=== PATIENT | female | born 1985 | race Caucasian/White ===

== ENCOUNTER → 2017-12-29 15:42 | Outpatient (CLI) | payer OTHER, SELFPAY ==
--- NOTE | 2017-12-29 15:40 | CER_PTH ---
PATIENT: JAYSHREE MORALES LOC: [facility] U#:[id number] AGE/SX: 39/F ROOM: RE12/29/[address]: Dr. Baldev Swain MD : 1985 BED: DIS: SPEC #: [id number] RECD: 12/29/17 16:30 STATUS: JOSEF GI #: [id number] JASMIN: 12/29/17 15:[address]: Baldev Swain DEPT: SURGICAL PATHOLOGY RECD BY: Evin Mckenzie Tissues: Uterine cervix, NOS Procedures: Surgery Specimen Level IV HEADER OPERATION: Excision cervical lesion PRE-OP DIAGNOSIS: Lesion on cervix (7 weeks ) TISSUE SUBMITTED: Cervical biopsy 12 o?clock MICROSCOPIC DIAGNOSIS Cervix, 12 o?clock, biopsy: Fragments of squamous mucosa with hyperkeratosis. Fragments of benign endocervical epithelium and mucous. SJ:ken 12/31/17 MICROSCOPIC DESCRIPTION Slides are reviewed. GROSS DESCRIPTION Received in fixative is one container labeled with the patient's name and designated biopsy. The specimen consists of multiple irregular fragments of kohli soft tissue mixed with mucoid tissue that in aggregate measure 1 x 1 x 0.1 cm. The specimen is totally submitted in one cassette. / SJ:ken 12/30/17 TC:5 CPT: 17984
[2017-12-29 17:02] LABS: Absolute Lymphocyte Count 1.58 X10^3/ul (0.83-4.51); Absolute Neutrophil Count 6.4 X10^3/uL (2.0-7.7); Basophil# 0.02 X10^3/uL; Basophil% 0.2 % (0-1); Eosinophil# 0.06 X10^3/uL; Eosinophils% 0.7 % (0-5); Hematocrit 35.5 % (37-47); Lymphocyte # 1.58 X10^3/ul (4.0); Lymphocyte % 18.3 % (19-41); Mean Corp Hgb Conc 33.8 g/gl (32-36); Mean Corpuscular Hgb 30.9 pg (27.0-32.0); Mean Corpuscular Volume 91.5 fL (81-99); Mean Platelet Vol. 9.1 fl (6.2-12.0); Monocyte# 0.58 X10^3/uL; Monocyte% 6.7 % (0-10); Neutrophil # 6.39 X10^3/uL (2.7-7.7); Neutrophil % 73.9 % (47-70); Platelet Count 290 K/mm3 (150-450); RBC Distribution Width CV 11.8 % (11.6-14.6); RBC Distribution Width SD 39.3 fl (35.1-43.9); Red Blood Count 3.88 M/mm3 (4.2-5.4); White Blood Count 8.7 K/mm3 (4.4-11.0)
[2017-12-29 17:18] LABS: Thyroid Stim Hormone (TSH) 0.81 uIU/mL (0.358-3.74)
[2017-12-29 17:21] LABS: Color, Urine Yellow (Yellow); Glucose, Dipstick Normal (Normal); Ketone-Dipstick Negative (Negative); Leukocyte Esterase-Dipstick 25 /ul (Negative); Nitrite-Dipstick Negative (Negative); Occult Blood-Urine Negative /ul (Negative); Protein-Dipstick Negative (Negative); Urine Bilirubin Dipstick Negative (Negative); Urine Clarity Clear (Clear); Urine Urobilinogen Normal (Normal); Urine pH 6.5 (5.0 - 8.0)
[2017-12-29 17:40] LABS: POSITIVE COUNT NO; POSITIVE DIFFERENTIAL NO; POSITIVE MORPHOLOGY NO
[2017-12-29 18:20] LABS: HIV - WCH Non-Reactive (Nonreactive); Rubella IgG 202.6 IU/mL
[2017-12-29 18:56] LABS: Chlamydia Trachomatis by PCR Negative (Negative); Neisserai gonorrhoeae by PCR Negative (Negative); Probe Check PASS; Sample Adequacy Control PASS; Specimen Processing Control PASS
[2017-12-31 01:20] LABS: Prenatal RPR NONREACTIVE (NONREACTIVE)
[2017-12-31 11:43] LABS: HEPATITIS B SURFACE AG Negative (Negative); Hep C Antibodies <0.1 s/co ratio (0.0-0.9)
[2018-01-06 10:21] LABS: HPV HC, High Risk Negative (Negative); HPV Reflexed? YES, CHARGE PATIENT
== END ==
PROVIDERS: Visit Provider Obstetrics & Gynecology
DX: O26.891 Other specified pregnancy related conditions, first trimester (principal); N88.0 Leukoplakia of cervix uteri; Z3A.01 Less than 8 weeks gestation of pregnancy; Z12.4 Encounter for screening for malignant neoplasm of cervix; Z11.3 Encounter for screening for infections with a predominantly sexual mode of transmission
CPT/HCPCS: 36415; 81002; 84443; 85025; 86703; 86762; 86803; 87340; 87491; 87591; 87624; 88175; 88305; G0145

== ENCOUNTER → 2018-06-01 11:43 | Outpatient (CLI) | payer OTHER, SELFPAY ==
[2018-06-01 13:42] LABS: Hematocrit 36.2 % (37-47); Hemoglobin 12.3 g/dl (12.0-15.0); Mean Corpuscular Hgb 32.3 pg (27.0-32.0); Mean Platelet Vol. 9.9 fl (6.2-12.0); Platelet Count 273 K/mm3 (150-450); RBC Distribution Width CV 12.4 % (11.6-14.6); RBC Distribution Width SD 41.4 fl (35.1-43.9); Red Blood Count 3.81 M/mm3 (4.2-5.4); White Blood Count 9.1 K/mm3 (4.4-11.0)
[2018-06-01 13:43] LABS: Scan Indicated on CBC? Y/N NO
[2018-06-01 13:52] LABS: Glucose Challenge Gest 1H 50g 99 mg/dL (70-140)
== END ==
PROVIDERS: Visit Provider Obstetrics & Gynecology
DX: Z34.83 Encounter for supervision of other normal pregnancy, third trimester (principal)
CPT/HCPCS: 36415; 82950; 85027

== ENCOUNTER 2018-07-10 11:48 | Emergency (ER) | payer OTHER, SELFPAY ==
[2018-07-10 11:50] VITALS: BP 137/73; PULSE 78; RESP 16; TEMP 36.7; O2SAT 98; BMI 28.0
--- NOTE | 2018-07-10 12:25 | ED.VISSUMM ---
- ER Visit Summary Date of Service: 07/10/18 Chief Complaint: Left facial droop and decreased facial sensation History of Present Illness: The patient is a 32 F no significant past medical history other than currently 35 weeks with a due date of 08/13/2018. She is AB 0. Patient states yesterday has some decreased sensation in the left side of her but did not have a droop yet. They were in the [place] area [facility] to [facility] who did a negative CT and worked her up. They discussed with her about possibly getting an MRI to rule out MS. They did not feel secondary to any type of preeclampsia. Today the patient developed a facial droop. She states it feels like when you go to the dentist and the lidocaine is wearing off. She denies any visual change. She denies any headache. She denies any head trauma. She denies any numbness, tingling, weakness or ataxia of her upper or lower extremities. No trouble walking or any visual change. Normal speech. Physical Examination: Very well-appearing 32-year-old female. Vital signs are stable afebrile. Her initial blood pressure is 137/73. She does not look septic or toxic or in any distress. HEENT exam pupils round reactive light extra motions are intact. She can open and close both eyes she has difficulty completely closing the left eye and I can open both the upper and lower lids there is weakness to closure on the left to the right is normal. She has a left facial droop. Tongue is midline. She has subjectively decreased sensation on the left compared to the right. There is forehead sparing she can wrinkle her forehead on both sides. Patient has normal speech. TMs are normal. No lesions. Neck nontender. Lungs clear to auscultation bilaterally. Heart regular rhythm no murmur. Abdomen is soft, nontender with a gravid nontender uterus. She is moving all 4 extremities. Neurovascularly intact. She has 5 out of 5 retail sales merchandiser strength bilaterally. Dorsi plantar flexion intact. She can lift either arm or leg without any drift. Fingertip to nose within normal limits as is heel to serra. Neurologic exam reveals a left facial droop with decreased sensation on the left side of the face with sparing of the forehead. Otherwise she has normal motor strength and sensation to her upper and lower extremities. 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 Test Results: None Emergency Department Course and Treatment: Patient be started on prednisone daily for 1 week. And follow-up with her GAS WELL PUMPER. Treatment Plan: Prednisone 40 m a day for 7 days. Also tape her eye closed at night. Use eyedrops. Disposition: Discharge Impression: Acute left-sided Rosenthal's palsy 35 weeks This note was generated with [email or web address] dictation software. It may contain incorrect words, spelling, and punctuation that were not noted in review of the chart prior to signing ED Disposition - Plan for ED Patient: Chief Complaint: Numb/Ting Referrals: Diego Betancourt MD [Primary Care Provider] -
--- NOTE | 2018-07-10 12:30 | ED.DCSUM_ITS ---
- ER Visit Summary Date of Service: 07/10/18 Chief Complaint: Left facial droop and decreased facial sensation History of Present Illness: The patient is a 32 F no significant past medical history other than currently 35 weeks with a due date of 08/13/2018. She is AB 0. Patient states yesterday has some decreased sensation in the left side of her but did not have a droop yet. They were in the [place] area 1 to [facility] who did a negative CT and worked her up. They discusse d with her about possibly getting an MRI to rule out MS. They did not feel secondary to any type of preeclampsia. Today the patient developed a facial droop. She states it feels like when you go to the dentist and the lidocaine is wearing off. She denies any visual change. She denies any headache. She denies any head trauma. She denies any numbness, tingling, weakness or ataxia of her upper or lower extremities. No trouble walking or any visual change. Normal speech. Physical Examination: Very well-appearing 32-year-old female. Vital signs are stable afebrile. Her initial blood pressure is 137/73. She does not look septic or toxic or in any distress. HEENT exam pupils round reactive light extra motions are intact. She can open and close both eyes she has difficulty completely closing the left eye and I can open both the upper and lower lids there is weakness to closure on the left to the right is normal. She has a left facial droop. Tongue is midline. She has subjectively decreased sensation on the left compared to the right. There is forehead sparing she can wrinkle her forehead on both sides. Patient has normal speech. TMs are normal. No lesions. Neck nontender. Lungs clear to auscultation bilaterally. Heart regular rhythm no murmur. Abdomen is soft, nontender with a gravid nontender uterus. She is moving all 4 extremities. Neurovascularly intact. She has 5 out of 5 band sawyer strength bilaterally. Dorsi plantar flexion intact. She can lift either arm or leg without any drift. Fingertip to nose within normal limits as is heel to serra. Neurologic exam reveals a left facial droop with decreased sensation on the left side of the face with sparing of the forehead. Otherwise she has normal motor strength and sensation to her upper and lower extremities. 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 Test Results: None Emergency Department Course and Treatment: Patient be started on prednisone daily for 1 week. And follow-up with her GROUP LEADER. Treatment Plan: Prednisone 40 m a day for 7 days. Also tape her eye closed at night. Use eyedrops. Disposition: Discharge Impression: Acute left-sided Rosenthal's palsy 35 weeks This note was generated with [employer] dictation software. It may contain incorrect words, spelling, and punctuation that were not noted in review of the chart prior to signing ED Disposition - Plan for ED Patient: Chief Complaint: Numb/Ting Referrals: Diego Betancourt MD [Primary Care Provider] -
--- NOTE | 2018-07-10 12:32 | DCINST.ED_ITS ---
ED Disposition - Plan for ED Patient: Disposition: Home or Assisted Living Chief Complaint: Numb/Ting Instructions: ED [facility] Prescriptions: Prednisone [Deltasone] 40 mg PO DAILY 7 Days #7 tab Referrals: Baldev Swain MD [STAFF PHYSICIAN] - As soon as possible Additional Instructions: Prednisone daily. Follow-up with your MANAGER MECHANICAL.
[2018-07-10] MEDS: predniSONE 20 MG Tablet 40 MG PO (13:00)
--- OUTSIDE RECORDS SUMMARY | 2018-09-02 23:25 | XMS RPT_ITS | Summary of Care ---
:1985 Author Organization [facility] Address [address] [place] [address] Phone Care Team Providers Name Role Phone Unavailable Primary Care Provider Unavailable Reason for Referral Consultation (Routine) Status Reason Specialty Diagnoses / Referred By Referred To Procedures Contact Contact New Request Neurology Diagnoses Right facial numbness Devin Ceballos MD [address] [place] [address] Reason for Visit Reason Comments Numbness Right Face Encounter Details Date Type Department Care Team Description 07/09/2018 Emergency [facility] Hu Padilla MD [address] [place] [phone] Ally Bates MD [address] [place] [phone] [place] [phone] Allergies No Known Allergiesas of this encounter Medications Prescription Sig. Disp. Refills Start Date End Date Status Vit-Fe Fumarate-FA Take by mouth. Active ( 1+1 PO) as of this encounter Social History Tobacco Use Types Packs/Day Years Used Date Never Assessed Currently Estimated Date of Delivery Comments Yes 08/13/2018 Sex Assigned at Date Recorded Not on file as of this encounter Last Filed Vital Signs Vital Sign Reading Time Taken Blood Pressure 135/76 07/09/2018 6:52 PM EST Pulse 80 07/09/2018 6:52 PM EST Temperature 37.2 ??C (99 ??F) 07/09/2018 3:04 PM EST Respiratory Rate 20 07/09/2018 6:52 PM EST Oxygen Saturation 98% 07/09/2018 6:52 PM EST Inhaled Oxygen Concentration - - Weight - - Height 170.2 cm (5' 7) 07/09/2018 3:05 PM EST Body Mass Index - - in this encounter Discharge Instructions Anabelle Anand MD - 07/09/2018The CT of your head was normal. The labs were normal. Neurology evaluated you and would like you to follow up with them 1 month after . Please return for worsening or changing numbness, weakness, v ision change, or slurred speech.in this encounter Plan of Treatment Scheduled Tests Name Priority Associated Diagnoses Order Schedule URINE PROTEIN/CREA RATIO, STAT One Time for 1 Occurrences RANDOM starting 07/09/2018 until 07/09/2018 Scheduled Referrals Name Priority Associated Diagnoses Order Schedule AMB REFERRAL TO NEUROLOGY Routine Right facial numbness Ordered: 07/09/2018 Health Maintenance Due Date Last Done Comments HIV SCREENING DISCUSSION 1997 TETANUS 2002 TDAP (ADULT) 2003 PAP SMEAR DISCUSSION 2005 INFLUENZA VACCINE (#1) 2018 as of this encounter Procedures Procedure Name Priority Date/Time Associated Comments Diagnosis CT HEAD WITHOUT STAT 07/09/2018 4:48 Results for this CONTRAST PM EST procedure are in the results section. CBC, EDIF, PLATELET STAT 07/09/2018 3:33 Results for this PM EST procedure are in the results section. PHOSPHATE, INORGANIC STAT 07/09/2018 3:33 Results for this PM EST procedure are in the results section. MAGNESIUM STAT 07/09/2018 3:33 Results for this PM EST procedure are in the results section. HEPATIC FUNCTION STAT 07/09/2018 3:33 Results for this PANEL PM EST procedure are in the results section. BASIC METABOLIC PANEL STAT 07/09/2018 3:33 Results for this PM EST procedure are in the results section. URINE MICROSCOPIC Routine 07/09/2018 3:18 Results for this WITH CULTURE HOLD PM EST procedure are in the results section. in this encounter Results CT HEAD WITHOUT CONTRAST (07/09/2018 4:48 PM) Impressions Performed At IMPRESSION: RADIOLOGY No acute intracranial findings. Narrative Performed At EXAM:?CT HEAD WITHOUT CONTRAST, 07/09/2018 4:48 PM RADIOLOGY COMPARISON: None available. CLINICAL INDICATIONS: 32 years Female R facial dysesthesia; TECHNIQUE: A series of transaxial computerized tomographic images are obtained from base of skull to vertex without intravenous contrast. Axial whole-head and thin section posterior fossa slices are provided. Reformats: Sagittal and coronal. FINDINGS: No evidence of acute intracranial hemorrhage, significant mass effect or territory infarct. No hyperdense extra-axial collection is identified. Ventricles are normal in size and configuration for patient's stated age. No obvious CT abnormality involving the posterior fossa structures. Calvarium and skull base appear intact.?Visualized sinuses show no air fluid levels. Visualized orbits are unremarkable. Procedure Note User, Interfaces - 07/09/2018 5:16 PM EST EXAM: CT HEAD WITHOUT CONTRAST, 07/09/2018 4:48 PM COMPARISON: None available. CLINICAL INDICATIONS: 32 years Female R facial dysesthesia; TECHNIQUE: A series of transaxial computerized tomographic images are obtained from base of skull to vertex without intravenous contrast. Axial whole-head and thin section posterior fossa slices are provided. Reformats: Sagittal and coronal. FINDINGS: No evidence of acute intracranial hemorrhage, significant mass effect or territory infarct. No hyperdense extra-axial collection is identified. Ventricles are normal in size and configuration for patient's stated age. No obvious CT abnormality involving the posterior fossa structures. Calvarium and skull base appear intact. Visualized sinuses show no air fluid levels. Visualized orbits are unremarkable. IMPRESSION IMPRESSION: No acute intracranial findings. Performing Organization Address [facility] [place] Phone Number RADIOLOGY HEPATIC FUNCTION PANEL (07/09/2018 3:33 PM) AST 17 14 - 40 U/L LAB, [facility] ALT 11 9 - 48 U/L LAB, [facility] ALKALINE PHOSPHATASE 92 32 - 126 U/L LAB, [facility] ALBUMIN 3.5 3.5 - 5.0 g/dL LAB, [facility] BILIRUBIN, DIRECT 0.1 <0.3 mg/dL LAB, [facility] BILIRUBIN, TOTAL 0.3 <1.5 mg/dL LAB, [facility] PROTEIN, TOTAL 6.2 (L) 6.4 - 8.3 g/dL LAB, [facility] Performing Organization Address [facility] [place] Phone Number LAB, [facility] [place] [facility], [address], [address] PHOSPHATE, INORGANIC (07/09/2018 3:33 PM) PHOSPHATE, INORGANIC 4.6 2.2 - 4.6 mg/dL LAB, [facility] Performing Organization Address [facility] [place] Phone Number LAB, [facility] [place] [facility], [address], [address] MAGNESIUM (07/09/2018 3:33 PM) MAGNESIUM 2.0 1.6 - 2.6 mg/dL LAB, [facility] Performing Organization Address [facility] [place] Phone Number LAB, [facility] [place] [facility], [address], [address] BASIC METABOLIC PANEL (07/09/2018 3:33 PM) BUN 9 7 - 22 mg/dL LAB, [facility] CREATININE SERUM 0.67 0.50 - 1.20 mg/dL LAB, [facility] SODIUM 136 133 - 143 mmol/L LAB, [facility] POTASSIUM 3.8 3.5 - 5.0 mmol/L LAB, [facility] CHLORIDE 106 98 - 108 mmol/L LAB, [facility] CARBON DIOXIDE (CO2) 19 (L) 22 - 30 mmol/L LAB, [facility] GLUCOSE 85 70 - 99 mg/dL LAB, [facility] CALCIUM 9.2 8.6 - 10.5 mg/dL LAB, [facility] ANION GAP 15 7 - 17 mmol/L LAB, [facility] ESTIMATED GFR, NON AMER >60 >60 mL/min/1.73sqM LAB, [facility] ESTIMATED GFR, >60 >60 mL/min/1.73sqM LAB, [facility] Performing Organization Address [facility] Number LAB, [facility] [place] [facility], [address], [address] CBC, EDIF, PLATELET (07/09/2018 3:33 PM) WBC (WHITE BLOOD COUNT) 8.60 3.99 - 11.19 K/uL LAB, [facility] RBC 3.94 3.91 - 5.04 M/uL LAB, [facility] HEMOGLOBIN (HGB) 12.6 11.4 - 15.2 g/dL LAB, [facility] HEMATOCRIT (HCT) 37.1 34.9 - 44.3 % LAB, [facility] MEAN CELL VOLUME 94.2 79.6 - 97.7 fL LAB, [facility] Mean Cell HGB 32.0 25.9 - 33.9 pg LAB, [facility] MEAN CELL HGB CONCENTRATION 34.0 31.4 - 35.9 g/dL LAB, [facility] RBC DISTRIBUTION 12.1 10.8 - 14.9 % LAB, [facility] PLATELET COUNT 252 150 - 393 K/uL LAB, [facility] MEAN PLATELET VOLUME 10.4 8.5 - 12.2 fL LAB, [facility] RBC, NUCLEATED 0.0 0.0 - 0.2 /100 WBC LAB, [facility] DIFFERENTIAL TYPE Electronic Differential LAB, [facility] IMMATURE GRANS% 0.5 % LAB, [facility] NEUTROPHIL SEGMENTED 71.2 % LAB, [facility] LYMPHOCYTES 19.8 % LAB, [facility] MONOCYTE 7.3 % LAB, [facility] EOSINOPHIL 0.7 % LAB, [facility] BASOPHIL 0.5 % LAB, [facility] IMMATURE GRANS ABSOLUTE 0.04 0.00 - 0.08 K/uL LAB, [facility] SEGS + Bands, Absolute 6.13 1.64 - 7.28 K/uL LAB, [facility] LYMPHOCYTES, ABSOLUTE 1.70 1.16 - 3.51 K/uL LAB, [facility] MONOCYTES, ABSOLUTE 0.63 0.22 - 0.87 K/uL LAB, [facility] EOSINOPHILS, ABSOLUTE 0.06 0.00 - 0.42 K/uL LAB, [facility] BASOPHILS, ABSOLUTE 0.04 0.00 - 0.15 K/uL LAB, [facility] Performing Organization Address City/State/Zipcode Phone Number LAB, [facility] [place] [facility], [place] [address] Center, [address] URINE MICROSCOPIC WITH CULTURE HOLD (07/09/2018 3:18 PM) APPEARANCE, URINE Clear Clear LAB, [facility] SPECIFIC GRAVITY, URINE 1.010 1.001 - 1.035 LAB, [facility] PH URINE 7.0 5.0 - 7.0 LAB, [facility] GLUCOSE, URINE Negative Negative mg/dL LAB, [facility] KETONES, URINE Negative Negative LAB, [facility] PROTEIN, URINE Negative Negative mg/dL LAB, [facility] UROBILINOGEN, URINE 0.2 <2.0 EU/dL LAB, [facility] NITRITES, URINE Negative Negative LAB, [facility] LEUKOCYTE ESTERASE, URINE Small (A) Negative LAB, [facility] BLOOD, URINE Negative Negative LAB, [facility] COLOR, URINE Yellow Yellow LAB, [facility] WBC, URINE 0-5 0 - 5 /HPF LAB, [facility] RBC, URINE 0-2 0 - 2 /HPF LAB, [facility] BACTERIA, URINE Trace (A) Absent LAB, [facility] COMMENT, URINE None LAB, [facility] SQUAMOUS EPITHELIAL CELLS, URINE 1+ /HPF LAB, [facility] Performing Organization Address City/State/Zipcode Phone Number LAB, [facility], [address] [place] [address] in this encounter Visit Diagnoses Diagnosis Right facial numbness - Primary Disturbance of skin sensation
--- OUTSIDE RECORDS SUMMARY | 2018-09-02 23:26 | XMS RPT_ITS ---
:1985 Author Organization [facility] Care Team Providers Name Role Phone CONSULT, NEUROLOGY Consulting Unavailable ALEX BONDS Attending Unavailable Baldev Swain Attending Unavailable Baldev Swain Attending Unavailable Baldev Swain Attending Unavailable Khalif Pinon Attending Unavailable Baldev Swain Referring Unavailable Diego Betancourt Primary Care Unavailable PROBLEMS PROBLEMS DATE TYPE CONDITION / CODE ATTENDING STATUS SOURCE 07/20/2018 Unknown Z36.85 - Encounter Baldev Swain for Community screening for Hospital Streptococcus B / Repository Z36.85(ICD-10) 07/20/2018 Unknown O13.9 - Gestational Baldev Swain Active [facility] [-induced] Community hypertension Hospital without significant Repository proteinuria, unspecified trimester / O13.9(ICD-10) 07/20/2018 Unknown Z34.83 - Encounter Baldev Swain Active [facility] for supervision of Community other normal Hospital , third Repository trimester / Z34.83(ICD-10) 07/20/2018 Unknown R03.0 - Elevated Baldev Swain Active [facility] blood-pressure Community reading, without Hospital diagnosis of Repository hypertension / R03.0(ICD-10) 07/09/2018 Admitting Anesthesia of skin CAMMIE, Active [facility] diagnosis / R20.0(ICD-10) [facility] Repository 12/29/2017 Unknown Z34.81 - Encounter Baldev Swain Active [facility] for supervision of [facility] other normal Hospital , first Repository trimester / Z34.81(ICD-10) PROCEDURES PROCEDURES No Procedure Records FoundRESULTS RESULTS CBC-COMPLETE BLOOD CNT Collected: 07/20/2018 Status: F Source: [place] NO DIFF 10:44 AM [facility] REPOSITORY TYPE CODE TESTS RESULT OUT OF RANGE REFERENCE UNITS LAB L100.1000 4.4-11.0 K/mm3 Normal WBC 6.7 LAB L100.1200 4.2-5.4 M/mm3 Low RBC 3.91 LAB L100.1300 12.0-15.0 g/dl Normal HGB 12.1 LAB L100.1400 37-47 % Low HCT 36.9 LAB L100.1500 81-99 fL Normal MCV 94.4 LAB L100.1600 27.0-32.0 pg Normal MCH 30.9 LAB L100.1700 32-36 g/gl Normal MCHC 32.8 LAB L100.1810 11.6-14.6 % Normal RDW CV 12.5 LAB L100.1820 35.1-43.9 fl Normal RDW SD 42.5 LAB L100.1900 150-450 K/mm3 Normal PLT 277 LAB L100.2000 6.2-12.0 fl Normal MPV 10.4 Performed By: #### L100.0500 #### [facility] [address] [place], [address] URIC ACID Collected: 07/20/2018 Status: F Source: [place] 10:44 AM [facility] REPOSITORY TYPE CODE TESTS RESULT OUT OF RANGE REFERENCE UNITS LAB L501.1400 2.6-6.0 mg/dL High URIC 6.9 Result Comment: The drugs N-Acetylcysteine and Metamizole may falsely depress this assay. Performed By: #### L501.1400, L501.4100, L501.4405 #### [facility] [address] [place], [address] AST(SGOT) Collected: 07/20/2018 Status: F Source: [place] 10:44 AM [facility] REPOSITORY TYPE CODE TESTS RESULT OUT OF RANGE REFERENCE UNITS LAB L501.4100 15-37 U/L Normal AST 15 Performed By: #### L501.1400, L501.4100, L501.4405 #### [facility] [address] [place], [place], [id number] ALANINE AMINOTRANSFERAS Collected: 07/20/2018 Status: F Source: [place] (SGPT) 10:44 AM [facility] REPOSITORY TYPE CODE TESTS RESULT OUT OF RANGE REFERENCE UNITS LAB L501.4405 13-56 U/L Normal ALT 15 Performed By: #### L501.1400, L501.4100, L501.4405 #### [facility] [address] [place], [place], [address] Observed: 07/20/2018 Status: F Source: [place] CULTURE, GROUP B 9:45 AM [facility] STREPTOCOCCUS REPOSITORY Comments: VAGINAL/RECTAL STEPHANY Culture ORGANISM 1: Streptococcus agalactiae (B) Amount Growth Growth Streptococcus agalactiae (B): REACTION Ampicillin $ <=0.25 S Clindamycin $$ <=0.25 R Inducable Clindamycin Resistan + Linezolid $$$$ <=2 S Vancomycin $ 0.5 S (NF) indicates non-formulary drug at [facility]. Approval by Infectious Disease Specialist required before non-formulary drugs may be ordered and/or dispensed. * CLSI guidelines does not recommend testing of cephalosporins. This interpretation is deduced from Beta-lactam/penicillin results. Performed By: #### M100.1800 #### [facility] [address] [place], [address] EMERGENCY DEPARTMENT Observed: 07/10/2018 Status: F Source: [place] SUMMARY 4:37 PM [facility] REPOSITORY [facility] Medical Records Department [address] [place] [address] Emergency Department Summary 07/10/18 1225 MR#: [id number] Acct: [id number] Name: JAYSHREE MORALES Rep #: [id number] : 1985 32 From: Khalif Pinon MD PCP: Diego Betancourt MD Status: DEP ER - ER Visit Summary Date of Service: 07/10/18 Chief Complaint: Left facial droop and decreased facial sensation History of Present Illness: The patient is a 32 F no significant past medical history other than currently 35 weeks with a due date of 08/13/2018. She is AB 0. Patient states yesterday has some decreased sensation in the left side of her but did not have a droop yet. They were in the [place] area 1 to [facility] who did a negative CT and worked her up. They discussed with her about possibly getting an MRI to rule out MS. They did not feel secondary to any type of preeclampsia. Today the patient developed a facial droop. She states it feels like when you go to the dentist and the lidocaine is wearing off. She denies any visual change. She denies any headache. She denies any head trauma. She denies any numbness, tingling, weakness or ataxia of her upper or lower extremities. No trouble walking or any visual change. Normal speech. Physical Examination: Very well-appearing 32-year-old female. Vital signs are stable afebrile. Her initial blood pressure is 137/73. She does not look septic or toxic or in any distress. HEENT exam pupils round reactive light extra motions are intact. She can open and close both eyes she has difficulty completely closing the left eye and I can open both the upper and lower lids there is weakness to closure on the left to the right is normal. She has a left facial droop. Tongue is midline. She has subjectively decreased sensation on the left compared to the right. There is forehead sparing she can wrinkle her forehead on both sides. Patient has normal speech. TMs are normal. No lesions. Neck nontender. Lungs clear to auscultation bilaterally. Heart regular rhythm no murmur. Abdomen is soft, nontender with a gravid nontender uterus. She is moving all 4 extremities. Neurovascularly intact. She has 5 out of 5 temporary receptionist strength bilaterally. Dorsi plantar flexion intact. She can lift either arm or leg without any drift. Fingertip to nose within normal limits as is heel to serra. Neurologic exam reveals a left facial droop with decreased sensation on the left side of the face with sparing of the forehead. Otherwise she has normal motor strength and sensation to her upper and lower extremities. 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 Test Results: None Emergency Department Course and Treatment: Patient be started on prednisone daily for 1 week. And follow-up with her NURSE INFECTION CONTROL. Treatment Plan: Prednisone 40 m a day for 7 days. Also tape her eye closed at night. Use eyedrops. 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 It may contain incorrect words, spelling, and punctuation that were not noted in review of the chart prior to signing ED Disposition - Plan for ED Patient: Chief Complaint: Numb/Ting Referrals: Diego Betancourt MD [Primary Care Provider] - What to do if you have Problems For any increased pain, shortness of breath, bleeding, nausea or vomiting, chest pain, or any unexpected problems, contact your Primary Care Provider. Call [facility] ([phone]) or report to the closest Emergency Room. Call 911 if necessary. 07/10/18 7995 <Electronically signed by Khalif Pinon MD> Date Khalif Pinon MD Cosigner Signature (If Indicated): Date CC: Diego Betancourt MD DISCHARGE INSTRUCTION Observed: 07/10/2018 Status: F Source: [place] 4:37 PM [facility] REPOSITORY [facility] Medical Records Department [address] [place] [address] Discharge Instruction 07/10/18 1230 MR#: [id number] Acct: [id number] Name: JAYSHREE MORALES Rep #: [id number] : 1985 32 From: Khalif Pinon MD PCP: Diego Betancourt MD Status: DEP ER ED Disposition - Plan for ED Patient: Disposition: Home or Assisted Living Chief Complaint: Numb/Ting Instructions: ED [place] Palsy Prescriptions: Prednisone [Deltasone] 40 mg PO DAILY 7 Days #7 tab Referrals: Baldev Swain MD [STAFF PHYSICIAN] - As soon as possible Additional Instructions: Prednisone daily. Follow-up with your NURSE INFECTION CONTROL. What to do if you have Problems For any increased pain, shortness of breath, bleeding, nausea or vomiting, chest pain, or any unexpected problems, contact your Primary Care Provider. Call [facility] ([phone]) or report to the closest Emergency Room. Call 911 if necessary. 07/10/18 1487 <Electronically signed by Khalif Pinon MD> Date Khalif Pinon MD Cosigner Signature (If Indicated): Date CC: Diego Betancourt MD CT HEAD WITHOUT Observed: 07/09/2018 Status: F Source: [place] CONTRAST 5:16 PM [facility] REPOSITORY EXAM: CT HEAD WITHOUT CONTRAST, 07/09/2018 4:48 [...] air fluid levels. Visualized orbits are unremarkable. IMPRESSION: No acute intracranial findings. WITH DIFF HENRIQUE Collected: 07/09/2018 Status: F Source: [facility] 3:33 PM [facility] REPOSITORY TYPE CODE TESTS RESULT OUT OF REFERENCE UNITS RANGE LAB WBC 3.99-11.19 K/uL WBC Count 8.60 LAB RBC 3.91-5.04 M/uL RBC Count 3.94 LAB HGB 11.4-15.2 g/dL Hemoglobin 12.6 LAB HCT 34.9-44.3 % Hematocrit 37.1 LAB MCV 79.6-97.7 fL Mean Cell 94.2 Volume LAB MCH 25.9-33.9 pg Mean Cell 32.0 Hgb LAB MCHC 31.4-35.9 g/dL Mean Cell 34.0 Hgb Conc LAB RDW 10.8-14.9 % RBC 12.1 Distribution LAB PLT 150-393 K/uL Platelet 252 Count LAB MPV 8.5-12.2 fL Mean 10.4 Platelet Volume LAB NRBC 0.0-0.2 /100 WBC NUCLEATED 0.0 RBC LAB DTYPE Electronic DIFFERENTIAL TYPE Differential LAB IGRE % IMMATURE 0.5 GRANS % LAB SEGS % NEUTROPHIL 71.2 SEGMENTED LAB LYM % LYMPHOCYTE 19.8 % LAB MON % MONOCYTE % 7.3 LAB EOS % *EOSINOPHIL 0.7 % LAB BASO % BASOPHIL % 0.5 LAB IGABS 0.00-0.08 K/uL IMMATURE 0.04 GRANS ABSOLUTE LAB SBANS 1.64-7.28 K/uL SEGS + 6.13 Bands,Absolute LAB ALYM 1.16-3.51 K/uL Abs Lymph 1.70 LAB AMONO 0.22-0.87 K/uL Abs [facility] 0.63 LAB AEOS 0.00-0.42 K/uL Abs Eos 0.06 LAB ABASO 0.00-0.15 K/uL Abs Baso 0.04 Performed By: #### CBCDFJ #### [facility], [facility] [address] [place], [place] [address] BASIC METABOLIC Collected: 07/09/2018 Status: F Source: [facility] PANEL-CHRI 3:33 PM [facility] REPOSITORY TYPE CODE TESTS RESULT OUT OF REFERENCE UNITS RANGE LAB BUN 7-22 mg/dL BUN 9 LAB CREA 0.50-1.20 mg/dL Creatinine 0.67 LAB NA 133-143 mmol/L Sodium 136 LAB K 3.5-5.0 mmol/L Potassium 3.8 LAB CL 98-108 mmol/L Chloride 106 LAB CO2 22-30 mmol/L Low Carbon Dioxide 19 LAB GLUC 70-99 mg/dL Glucose 85 LAB CA 8.6-10.5 mg/dL Calcium 9.2 LAB GAP 7-17 mmol/L Anion Gap 15 LAB GFR >60 mL/min/1.73 sqM Est GFR,non >60 Japanese LAB GFRA >60 mL/min/1.73 sqM Est GFR, >60 Performed By: ###Juan Pablo SEAMAN #### [facility] NULL, [facility] [address] [place] [address] HEPATIC FUNCTIONS - Collected: 07/09/2018 Status: F Source: [facility] CHRI 3:33 PM [facility] REPOSITORY TYPE CODE TESTS RESULT OUT OF REFERENCE UNITS RANGE LAB AST 14-40 U/L AST 17 LAB ALT 9-48 U/L ALT 11 LAB ALP 32-126 U/L Alkaline Phosphatase 92 LAB ALB 3.5-5.0 g/dL Albumin 3.5 LAB BILD <0.3 mg/dL Bilirubin Direct 0.1 LAB BILT <1.5 mg/dL Bilirubin Total 0.3 LAB TP 6.4-8.3 g/dL Low Total Protein 6.2 Performed By: #### JURGEN #### [facility] CCCT, [facility] [address] [place] [address] INORG PHOSPHATE - CHRI Collected: 07/09/2018 Status: F Source: [facility] 3:33 PM [facility] REPOSITORY TYPE CODE TESTS RESULT OUT OF REFERENCE UNITS RANGE LAB IP 2.2-4.6 mg/dL Inorg Phosphate 4.6 Performed By: #### JURGEN #### [place] CCCT, [facility] [address] [place] [address] MAGNESIUM - CHRI Collected: 07/09/2018 Status: F Source: [facility] 3:33 PM [facility] REPOSITORY TYPE CODE TESTS RESULT OUT OF REFERENCE UNITS RANGE LAB MG 1.6-2.6 mg/dL Magnesium 2.0 Performed By: #### CBCDFJ #### [place] CCCT, [facility] [address] [place], [place] [address] *URINALYSIS (WITH MICRO Collected: 07/09/2018 Status: F Source: [facility]) - ED 3:18 PM [facility] REPOSITORY TYPE CODE TESTS RESULT OUT OF RANGE REFERENCE UNITS LAB JUNIOR ARCHITECT Clear Appearance Urine Clear LAB SPGR 1.001-1.035 Specific [place] urine 1.010 LAB UPH 5.0-7.0 pH Urine 7.0 LAB UGL Negative mg/dL Glucose Urine Negative LAB UKET Negative Ketones Urine Negative LAB UPR Negative mg/dL Protein Urine Negative LAB UURO <2.0 EU/dL Urobilinogen 0.2 urine LAB UNTR Negative Nitrites Urine Negative LAB ULEU Negative Leukocyte Abnormal Esterase Small LAB UBLD Negative Blood Urine Negative LAB COLR Yellow Color Yellow LAB UWBC 0-5 /HPF WBC Urine 0-5 LAB URBC 0-2 /HPF RBC Urine 0-2 LAB BACT Absent Bacteria Abnormal Trace LAB UCOM COMMENT URINE None LAB EPIS /HPF Squamous Epithelial 1+ Performed By: #### URINCC #### [place]O [facility] [address] [place] [address] [place] [address] CBC-COMPLETE BLOOD CNT Collected: 06/01/2018 Status: F Source: [place] NO DIFF 11:38 AM [facility] REPOSITORY TYPE CODE TESTS RESULT OUT OF RANGE REFERENCE UNITS LAB L100.1000 4.4-11.0 K/mm3 Normal WBC 9.1 LAB L100.1200 4.2-5.4 M/mm3 Low RBC 3.81 LAB L100.1300 12.0-15.0 g/dl Normal HGB 12.3 LAB L100.1400 37-47 % Low HCT 36.2 LAB L100.1500 81-99 fL Normal MCV 95.0 LAB L100.1600 27.0-32.0 pg High MCH 32.3 LAB L100.1700 32-36 g/gl Normal MCHC 34.0 LAB L100.1810 11.6-14.6 % Normal RDW CV 12.4 LAB L100.1820 35.1-43.9 fl Normal RDW SD 41.4 LAB L100.1900 150-450 K/mm3 Normal PLT 273 LAB L100.2000 6.2-12.0 fl Normal MPV 9.9 Performed By: #### L100.0500 #### [facility] [address] [place], [address] GLUCOSE CHALLENGE GEST Collected: 06/01/2018 Status: F Source: [place] 1H 50G 11:38 AM [facility] REPOSITORY TYPE CODE TESTS RESULT OUT OF RANGE REFERENCE UNITS LAB L501.0250 70-140 mg/dL Normal GLU GEST 99 50g 1H Performed By: #### L501.0250 #### [facility] [address] [facility] [place], [address] THYROID STIM HORMONE Collected: 12/29/2017 Status: F Source: [place] (TSH) 3:48 PM [facility] REPOSITORY TYPE CODE TESTS RESULT OUT OF RANGE REFERENCE UNITS LAB L501.9520 0.358-3.74 uIU/mL Normal TSH 0.81 Performed By: #### L501.9520 #### [facility] [address] [place], [address] URINALYSIS, ROUTINE Collected: 12/29/2017 Status: F Source: [place] (DIPSTICK) 3:48 PM [facility] REPOSITORY Order Comment: How was Urine Obtained? CLEAN CATCH TYPE CODE TESTS RESULT OUT OF RANGE REFERENCE UNITS LAB L400.3000 Yellow COLOR Normal Yellow LAB L400.3050 Clear Normal CLARITY Clear LAB L400.3200 Normal mg/dl Normal GLUCOSE, UR Normal LAB L400.3300 Negative mg/dL Normal BILIRUBIN URINE Negative LAB L400.3400 Negative mg/dl Normal KETONE UR Negative LAB L400.3465 1.002-1.030 Normal SP.GR. DIPSTX 1.010 LAB L400.3550 5.0 - 8.0 pH UR Normal 6.5 LAB L400.3600 Negative mg/dl PROT Normal DIPSTX Negative LAB L400.3700 Normal mg/dl Normal UROBILI Normal LAB L400.3750 Negative Normal NITRITE UR Negative LAB L400.3780 Negative /ul Normal OCCULT BLOOD-UR Negative LAB L400.3800 Negative /ul High LEUK 25 ESTERASE Performed By: #### L400.2010 #### [facility] [address] [facility] [place], [place], [address] CBC W/DIFF, AUTOMATED Collected: 12/29/2017 Status: F Source: [place] 3:48 PM [facility] REPOSITORY TYPE CODE TESTS RESULT OUT OF RANGE REFERENCE UNITS LAB L100.1000 4.4-11.0 K/mm3 Normal WBC 8.7 LAB L100.1200 4.2-5.4 M/mm3 Low RBC 3.88 LAB L100.1300 12.0-15.0 g/dl Normal HGB 12.0 LAB L100.1400 37-47 % Low HCT 35.5 LAB L100.1500 81-99 fL Normal MCV 91.5 LAB L100.1600 27.0-32.0 pg Normal MCH 30.9 LAB L100.1700 32-36 g/gl Normal MCHC 33.8 LAB L100.1810 11.6-14.6 % Normal RDW CV 11.8 LAB L100.1820 35.1-43.9 fl Normal RDW SD 39.3 LAB L100.1900 150-450 K/mm3 Normal PLT 290 LAB L100.2000 6.2-12.0 fl Normal MPV 9.1 LAB L100.2100 47-70 % High NEUT% 73.9 LAB L100.2200 19-41 % Low LY% 18.3 LAB L100.2300 0-10 % Normal MONO% 6.7 LAB L100.2400 0-5 % Normal EO% 0.7 LAB L100.2500 0-1 % Normal BASO% 0.2 LAB L100.2550 0.0-0.9 % Normal IM GRAN % 0.200 Result Comment: IG% - Immature Granulocytes (promyelocytes, myelocytes and metamyelocytes) > 1% indicates that a LEFT SHIFT is Present. LAB L100.2620 2.0-7.7 X10 3/uL Normal Absolute Neut 6.4 LAB L100.2720 0.83-4.51 X10 3/ul Normal Absolute Lymph 1.58 Performed By: #### L100.0100 #### [facility] [address] [place], [place], [address] T AND S-NO Collected: 12/29/2017 Status: F Source: [place] CHARGE W/PNP 3:48 PM [facility] REPOSITORY Order Comment: Reason for Type AND Screen/Red Cells: Surgery? N TYPE CODE TESTS RESULT OUT OF RANGE REFERENCE UNITS LAB B10.0800 A Normal BLOOD POSITIVE TYPE GEL LAB B100.4050 Normal Ab SCREEN NEGATIVE GEL Performed By: #### B100.7550 #### [facility] [place], [address] RUBELLA IGG Collected: 12/29/2017 Status: F Source: [place] 3:48 PM [facility] REPOSITORY TYPE CODE TESTS RESULT OUT OF RANGE REFERENCE UNITS LAB L509.4000 IU/mL Normal [place]ella IgG 202.6 Result Comment: Antibody results Interpretation of Immune Status < 5 IU/ml Presumed Non-immune 5 - < 10 IU/ml Equivocal > or = 10 IU/ml Presumed Immune Performed By: #### L509.4000, L3890.6005 #### [facility] [address] [place], [place] [address]e. [facility] [address] HIV - [facility] Collected: 12/29/2017 Status: F Source: [place] 3:48 PM [facility] REPOSITORY TYPE CODE TESTS RESULT OUT OF RANGE REFERENCE UNITS LAB L3890.6005 Nonreactive Normal HIV - [facility] Non-Reactive Performed By: #### L509.4000, L3890.6005 #### [facility] [place], [address] RPR Collected: 12/29/2017 Status: F Source: [place] 3:48 PM [facility] REPOSITORY TYPE CODE TESTS RESULT OUT OF REFERENCE UNITS RANGE LAB L700.5100 NONREACTIVE Normal RPR NONREACTIVE Performed By: #### L700.5100 #### [facility] [address] [place], [address] HEPATITIS B SURFACE Collected: 12/29/2017 Status: F Source: [place] AG 3:48 PM [facility] REPOSITORY TYPE CODE TESTS RESULT OUT OF RANGE REFERENCE UNITS LAB L3100.0400 Negative Normal HB Negative SURF AG Result Comment: Performed at: - [facility] [id number] Sales And Training Specialist: Anup Blunt PhD, Phone: [phone] Performed By: #### L3100.0390, L3100.0625 #### [facility] (refer to report for specific site) refer to report for address and phone number HEPATITIS C ANTIBODIES Collected: 12/29/2017 Status: F Source: [place] 3:48 PM [facility] REPOSITORY TYPE CODE TESTS RESULT OUT OF RANGE REFERENCE UNITS LAB L3100.0650 0.0-0.9 s/co ratio Normal HEP C AB <0.1 Result Comment: Negative: < 0.8 Indeterminate: 0.8 - 0.9 Positive: > 0.9 The CDC recommends that a positive HCV antibody result be followed up with a HCV Nucleic Acid Amplification test (003428). Performed By: #### L3100.0390, L3100.0625 #### [facility] (refer to report for specific site) refer to report for address and phone number CERVICAL Observed: 12/29/2017 Status: F Source: [place] 3:40 PM [facility] REPOSITORY Patient: JAYSHREE MORALES : 1985 (32/F) Acct Num: [id number] Phys: Baldev Swain MD Unit Num: [id number] Loc: [facility] Specimen: [id number] Received: 12/29/17 - 1630 Spec Type: CERV TISSUES TISSUES: Uterine cervix, NOS GROSS DESCRIPTION Received in fixative is one container labeled with the patient's name and designated biopsy. The specimen consists of multiple irregular fragments of kohli soft tissue mixed with mucoid tissue that in aggregate measure 1 x 1 x 0.1 cm. The specimen is totally submitted in one cassette. / INEZ:ken 12/30/17 TC:5 CPT: 03392 HEADER OPERATION: Excision cervical lesion PRE-OP DIAGNOSIS: Lesion on cervix (7 weeks ) TISSUE SUBMITTED: Cervical biopsy 12 o clock MICROSCOPIC DESCRIPTION Slides are reviewed. MICROSCOPIC DIAGNOSIS Cervix, 12 o clock, biopsy: Fragments of squamous mucosa with hyperkeratosis. Fragments of benign endocervical epithelium and mucous. SJ:ken 12/31/17 Signed Jesús Keith 12/31/17 <signature on file> Performed By: #### PCER #### [facility] [address] [place], [address] CT/NG WCH BY PCR Collected: 12/29/2017 Status: F Source: [place] 3:00 PM [facility] REPOSITORY Order Comment: CYTOLOGY INFORMATION: - CLINICAL INFORMATION: - DATE LMP/MENOPAUSE: 11/07/17 LMP - COLLECTION VIAL: Thin Prep Vial - BASIN FINISH OPERATOR TIG WELDER SOURCE: CERVICAL/ENDOCERVICAL - COLLECTION TECHNIQUE: BRUSH/SPATULA TYPE CODE TESTS RESULT OUT OF RANGE REFERENCE UNITS LAB L8200.2100 Negative Normal Chlam Negative Trac PCR LAB L8200.2200 Negative Normal NG by Negative PCR Performed By: #### L8200.2000 #### [facility] [address] [place], [address] PAP I-G W/ REFLEX Collected: 12/29/2017 Status: F Source: [place] TO HR HPV 3:00 PM [facility] REPOSITORY Order Comment: CYTOLOGY INFORMATION: - CLINICAL INFORMATION: - DATE LMP/MENOPAUSE: 11/07/17 LMP - COLLECTION VIAL: Thin Prep Vial - BASIN FINISH OPERATOR TIG WELDER SOURCE: CERVICAL/ENDOCERVICAL - COLLECTION TECHNIQUE: BRUSH/SPATULA Specimen Comment: [id number] Specimen Comment: No. of containers..01 ThinPrep Vial TYPE CODE TESTS RESULT OUT OF REFERENCE UNITS RANGE LAB L7400.0800 . High DIAGN Comment Result Comment: EPITHELIAL CELL ABNORMALITY. ATYPICAL SQUAMOUS CELLS OF UNDETERMINED SIGNIFICANCE. FUNGAL ORGANISMS MORPHOLOGICALLY CONSISTENT WITH SHANNAN SPECIES ARE PRESENT. LAB L7400.0900 . Normal ADEQ Comment Result Comment: Satisfactory for evaluation. Endocervical and/or squamous metaplastic cells (endocervical component) are present. Areas of partially obscuring inflammtory exudate are present. LAB L7400.1400 . Normal PERFORM Comment Result Comment: Sarah Whitaker, Hose Finisher (ASCP) LAB L7400.1700 . Normal SIGN Comment Result Comment: Immanuel Felipe MD (Charles), Pathologist LAB L7400.1720 . Normal Path prov. Comment ICD9 Result Comment: R87.610, R87.5 LAB L7400.2575 . Normal TEST METHOD Comment Result Comment: This liquid based ThinPrep(R) pap test was screened with the use of an image guided system. LAB L7400.2600 . Normal . COMM LAB L7400.2700 . Normal PAPSMR Comment Result Comment: The Pap smear is a screening test designed to aid in the detection of premalignant and malignant conditions of the uterine cervix. It is not a diagnostic procedure and should not be used as the sole means of detecting cervical cancer. Both false-positive and false-negative reports do occur. LAB L7400.2800 . Normal HPV RFLX Comment Result Comment: See below for HPV testing results. LAB L7400.2900 Negative Normal HPV Negative HC,[facility] RISK Result Comment: This high-risk HPV test detects thirteen high-risk types (16/18/31/33/35/39/45/51/52/56/58/59/68) without differentiation. Performed at: [address] [id number] Sales And Training Specialist: Ania Zafar MD, Phone: [phone] Performed at: [address] [id number] Sales And Training Specialist: Flora Kaminski MD, Phone: [phone] Performed at: [address] [id number] Sales And Training Specialist: Flora Kaminski MD, Phone: [phone] Performed By: #### L7400.0355 #### [facility] (refer to report for specific site) refer to report for address and phone number ALLERGIES ALLERGIES DATE TYPE / CODE NAME / CODE REACTION SEVERITY SOURCE 07/10/2018 Drug No Known Unknown [facility] Allergy/4160 Allergies/F00 Hospital 39885(SNOMED [id number](RXNOR Repository CT) M) ENCOUNTERS ENCOUNTERS ADMIT/DISCHARGE ACCOUNT NUMBER ADMITTING ENCOUNTER LOCATION SOURCE CLASS 07/20/2018 [id number] Ambulatory [facility] ding:WOBLAB Repository 07/10/2018/07/10/20 [id number] Emergency [address] ding:ED Repository 07/09/2018/07/09/20 [id number] Emergency Building:[place] [address] Room: [place] [address]Bed: [address] Repository 06/01/2018 [id number] Ambulatory [facility] ding:WOBLAB Repository 12/29/2017 [id number] Ambulatory [facility] ding:WOBLAB Repository PAYERS PAYERS ENCOUNTER GUARANTOR PAYER SUBSCRIBER SOURCE 07/20/2018 ADI MORALES309A Primary ADI RHODTANADOB: [id number] Number: Hospital [id number]: 330 [id number] Repository [phone] () Date:[id number] [address] [address]JG: 07/20/2018 Secondary NOT GIVENUNK [place] Insurance:SELF PAY [facility] Number: Effective Repository Date:2018-07-20 07/10/2018 ADI MORALES309A Primary ADI CARMENDOB: [place] Insurance[place] [id number] Number: Hospital [id number]: ([phone]) [id number] Repository [phone] () Date:4108-37-61OR [address] [place] [address]KS: 07/10/2018 Secondary NOT GIVENUNK [place] Insurance:SELF PAY [facility] Number: Effective Repository Date:2018-07-10 07/09/2018 ELIJAH [facility] [id number] icy Number: [place] [facility] [id number] Date:5379-89-31Sjis [address]Kov: (330) Repository [address]Ntj: (330) Name:[facility] [phone] () 06/01/2018 Adi Martina Primary ADI ULLOAB: [place] Insurance:[employer] [id number] [place] icy Number: Hospital [id number]: 330 [id number] Repository [phone] () Date:[id number] [address] [place] [address]HP: 06/01/2018 Secondary NOT GIVENUNK [place] Insurance:SELF PAY [facility] Effective Repository Date:2018-06-01 12/29/2017 Adi Martina Primary ADI ULLOAB: [place] Insurance:[employer] [id number] [place] icy Number: Hospital [id number]: 330 [id number] Repository [phone] () Date:8607-73-65EA [address] [address]HR: 12/29/2017 Secondary NOT GIVENUNK [place] Insurance:SELF PAY [facility] Hospital Number: Effective Repository Date:2017-12-29
== END 2018-07-10 13:07 | disposition home or self-care (01) ==
PROVIDERS: Emergency Provider Emergency Medicine; Family Provider Orthopaedic Surgery; PCP Orthopaedic Surgery; Referring Provider Obstetrics & Gynecology
DX: O99.353 Diseases of the nervous system complicating pregnancy, third trimester (principal); G51.0 Bell's palsy; Z3A.35 35 weeks gestation of pregnancy
CPT/HCPCS: 99283

== ENCOUNTER → 2018-07-20 10:38 | Outpatient (CLI) | payer OTHER, SELFPAY ==
[2018-07-10 11:50] VITALS: BMI 28.0
[2018-07-20 13:52] LABS: Hematocrit 36.9 % (37-47); Hemoglobin 12.1 g/dl (12.0-15.0); Mean Corp Hgb Conc 32.8 g/gl (32-36); Mean Corpuscular Hgb 30.9 pg (27.0-32.0); Mean Corpuscular Volume 94.4 fL (81-99); Mean Platelet Vol. 10.4 fl (6.2-12.0); Platelet Count 277 K/mm3 (150-450); RBC Distribution Width CV 12.5 % (11.6-14.6); RBC Distribution Width SD 42.5 fl (35.1-43.9); Red Blood Count 3.91 M/mm3 (4.2-5.4); Scan Indicated on CBC? Y/N NO; White Blood Count 6.7 K/mm3 (4.4-11.0)
[2018-07-20 14:05] LABS: AST(SGOT) 15 U/L (15-37); Alanine Aminotransfer ALT/SGPT 15 U/L (13-56); Uric Acid 6.9 mg/dL (2.6-6.0)
--- OUTSIDE RECORDS SUMMARY | 2018-09-05 12:40 | XMS RPT_ITS ---
:1985 Author Organization [facility] Care Team Providers Name Role Phone CONSULT, NEUROLOGY Consulting Unavailable ALEX BONDS Attending Unavailable Baldev Swain Attending Unavailable Tory Oliveira Admitting Unavailable Tory Oliveira Attending Unavailable Baldev Swain Attending Unavailable Baldev Swain Attending Unavailable Khalif Pinon Attending Unavailable Baldev Swain Referring Unavailable Diego Betancourt Primary Care Unavailable PROBLEMS PROBLEMS DATE TYPE CONDITION / CODE ATTENDING STATUS SOURCE 07/20/2018 Unknown Z36.85 - Encounter Baldev Swain for Community screening for Hospital Streptococcus B / Repository Z36.85(ICD-10) 07/20/2018 Unknown O13.9 - Gestational Baldev Swain [-induced] [facility] hypertension Hospital without significant Repository proteinuria, unspecified trimester / O13.9(ICD-10) 07/20/2018 Unknown Z34.83 - Encounter Baldev Swain for supervision of [facility] normal Hospital , third Repository trimester / Z34.83(ICD-10) 07/20/2018 Unknown R03.0 - Elevated Baldev Swain blood-pressure Community reading, without Hospital diagnosis of Repository hypertension / R03.0(ICD-10) 07/09/2018 Admitting Anesthesia of skin CAMMIE, Active [facility] diagnosis / R20.0(ICD-10) [facility] Repository 12/29/2017 Unknown Z34.81 - Encounter Baldev Swain for supervision of [facility] normal Hospital , first Repository trimester / Z34.81(ICD-10) PROCEDURES PROCEDURES No Procedure Records FoundRESULTS RESULTS CBC W/DIFF, AUTOMATED Collected: 08/04/2018 Status: F Source: [place] 4:50 AM [facility] HOSPITAL REPOSITORY TYPE CODE TESTS RESULT OUT OF RANGE REFERENCE UNITS LAB L100.1000 4.4-11.0 K/mm3 Normal WBC 7.5 LAB L100.1200 4.2-5.4 M/mm3 Low RBC 3.52 LAB L100.1300 12.0-15.0 g/dl Low HGB 11.3 LAB L100.1400 37-47 % Low HCT 33.8 LAB L100.1500 81-99 fL Normal MCV 96.0 LAB L100.1600 27.0-32.0 pg High MCH 32.1 LAB L100.1700 32-36 g/gl Normal MCHC 33.4 LAB L100.1810 11.6-14.6 % Normal RDW CV 12.5 LAB L100.1820 35.1-43.9 fl Normal RDW SD 42.2 LAB L100.1900 150-450 K/mm3 Normal PLT 279 LAB L100.2000 6.2-12.0 fl Normal MPV 10.0 LAB L100.2100 47-70 % Normal NEUT% 64.4 LAB L100.2200 19-41 % Normal LY% 26.2 LAB L100.2300 0-10 % Normal MONO% 6.4 LAB L100.2400 0-5 % Normal EO% 2.4 LAB L100.2500 0-1 % Normal BASO% 0.3 LAB L100.2550 0.0-0.9 % Normal IM GRAN % 0.300 Result Comment: IG% - Immature Granulocytes (promyelocytes, myelocytes and metamyelocytes) > 1% indicates that a LEFT SHIFT is Present. LAB L100.2620 2.0-7.7 X10 3/uL Normal Absolute Neut 4.9 LAB L100.2720 0.83-4.51 X10 3/ul Normal Absolute Lymph 1.97 Performed By: #### L100.0100 #### [facility] [address] [place], [address] COMPREHENSIVE METABOLIC Collected: 08/04/2018 Status: F Source: [facility] 4:50 AM [facility] REPOSITORY TYPE CODE TESTS RESULT OUT OF RANGE REFERENCE UNITS LAB L501.0100 74-106 mg/dL Low GLU 73 Result Comment: Please note revised GLUCOSE reference range effective 2017. LAB L501.1000 7-18 mg/dL Normal BUN 12 LAB L501.1100 0.55-1.02 mg/dL Normal CREAT,SERUM 0.84 Result Comment: The validity of the calculated GFR AND GFRAA in patients over 70 years has not been determined. Clinical correlation is essential. LAB L501.1110 >60 mL/min Normal EST GFR 82 Result Comment: Non- GFR Calc LAB L501.1115 >60 mL/min Normal EST GFR - AA 99 Result Comment: GFR Calc LAB L501.1255 ml/min Normal Estimated CRCL 126.02 LAB L501.1300 10-20 RATIO BUN/CRE Normal 14.2 LAB L501.1500 6.4-8. g/dL Low 2 T PROT 5.8 LAB L501.1800 3.2-5. g/dL Low 0 ALB 2.4 LAB L501.1950 2.2-4. g/dL 2 GLOB Normal 3.4 LAB L501.2000 0.9-2. RATIO Low 4 A/G 0.7 LAB L501.2200 8.5-10 mg/dL Low .1 CA 8.4 LAB L501.4100 15-37 U/L AST Normal 21 LAB L501.4305 45-117 U/L ALK P Normal 83 LAB L501.4405 13-56 U/L ALT Normal 18 LAB L501.4600 0.20-1 mg/dL .00 T BILI Normal 0.20 LAB L501.5300 136-14 mmol/L 5 NA Normal 142 LAB L501.5600 3.5-5. mmol/L 1 K Normal 3.9 LAB L501.5900 98-107 mmol/L High CL 108 LAB L501.6100 21.0-3 mmol/L 2.0 CO2 Normal 25.0 LAB L501.6200 5-15 GAP Normal 9 Performed By: #### L500.4050, L501.1400 #### [facility] [address] [place], [place], [address] URIC ACID Collected: 08/04/2018 Status: F Source: [place] 4:50 AM [facility] REPOSITORY TYPE CODE TESTS RESULT OUT OF RANGE REFERENCE UNITS LAB L501.1400 2.6-6.0 mg/dL High URIC 7.4 Result Comment: The drugs N-Acetylcysteine and Metamizole may falsely depress this assay. Performed By: #### L500.4050, L501.1400 #### [facility] [address] [place], [address] DISCHARGE INSTRUCTION Observed: 08/02/2018 Status: F Source: [place] 12:31 PM [facility] REPOSITORY [facility] Medical Records Department [address] [place] [address] Instructions for Home/Discharge Instructions 08/02/18 1230 MR#: [id number] Acct: [id number] Name: CARMENJAYSHREE M Rep #: [id number] : 1985 32 From: Tory Sorto MD PCP: Status: ADM IN Discharge Diet: No Restrictions Discharge Activity: Return to Normal Activity, May not drive while taking narcotic pain medications., May Take a Tub Bath May resume sexual activity in: 6 weeks Lifting Restrictions: 20 lb Call your doctor if you observe: Fever of 101 or Higher, Inability to urinate, Inability to have a bowel movement, Using more than one pad per hour, Shortness of breath, Chest pain, Calf discomfort, Uncontrolled pain Suture Line Care: Avoid Pulling/Pushing Cleanse incision/area with: Soap AND Water Additional Instructions: If you experience any of the following, contact your healthcare provider. * Bleeding that soaks a pad every hour for 2 hours * Fever 100.4 or higher * Unrelieved incision or abdominal pain * Swelling, redness, discharge or bleeding from your incision or episiotomy site * Your incision begins to separate * Problems urinating (including inability to urinate or burning while urinating). * Visual changes * Severe headache * Flu-like symptoms * Pain or redness in one of both of your breasts * Pain, warmth, tenderness or swelling in your legs, especially the calf area * Frequent nausea and vomiting * Symptoms of depression or anxiety If you experience any of the following, call 911 or go to the nearest Emergency Room. * Chest pain * Problems breathing * Seizure activity * Partial or complete paralysis of a body part, slurred speech, weakness or drooping of the face, or a sudden inability to walk or hold your balance Allergies/Adverse Reactions: Allergies No Known Allergies Allergy (Verified 07/10/18 11:53) Medications to take at Discharge L.acidoph,Paracasei, B.lactis [Probiotic] 1 each PO DAILY 10/22/15 Vits [Prenatabs FA] 1 tablet PO DAILY 10/22/15 Ibuprofen 600 mg PO TID PRN #30 tablet 08/02/18 The following prescriptions were given: Ibuprofen 600 mg PO TID PRN #30 tablet PRN Reason: Pain Please Follow Up With: Baldev Swain MD - Blood pressure check When: 7-10 days Please Follow Up With: Baldev Swain MD - visit When: 6 weeks Test Results: Test results from this visit will be discussed in further detail at your follow-up appointment, if applicable. 08/02/18 1231 <Electronically signed by Tory Oliveira MD> Date Tory Oliveira MD CC: Signed OPERATIVE REPORT Observed: 08/02/2018 Status: F Source: [place] 12:24 PM [facility] REPOSITORY [facility] Medical Records Department [address] [place] [address] Operative Report 08/02/18 1206 MR#: [id number] Acct: [id number] Name: JAYSHREE MORALES Rep #: [id number] : 1985 32 From: Tory Sorto MD PCP: Status: ADM IN Y Location: [id number] - Problem List (1) 38 weeks gestation of Status: Acute (2) (spontaneous vaginal delivery) Status: Acute Vaginal Delivery Maternal Presentation: Active Labor Method of Induction: - - pitocin augmentation Amniotic Membrane Rupture Type: Artificial Rupture of Membrane time: 0939h 08/02/18 Amniotic Fluid Description: Clear Final ATA: 08/14/18 Final ATA Source: US <20 weeks Gestational age: 38 Weeks and 2 Days [place] doctor who attended delivery (if requested by OB): Alexsandra Mai Date of Procedure: 08/02/18 Pre-Operative Diagnosis: 38 2/7wga, labor Post-Operative Diagnosis: 38 2/7wga, labor Surgery/ Procedure Performed: Spontaneous Vaginal Delivery Type of Anesthesia: None, Local with 1% lidocaine Description of Procedure: IV pitocin was discontinued for recurrent variable decelerations with some improvement of FHR. On my exam, patient was FD/+2 station. She pushed with maternal effort to +4 station. FHR remained Cat I-II with moderate variability with intermittent loss of contact during pushing. There was perineal tissue dystocia. I advised episiotomy and patient agreed to proceed. 1% lidocaine was injected at the perineum and a right mediolateral episiotomy was performed. The patient delivered the head with the subsequent contraction. A nuchal cord was reduced x 1 and the shoulders delivered easily to reveal a vigorous male infant. The was placed on the maternal abdomen and further attended by nursery personnel and the Pediatric Hospitalist. The cord was doubly clamped and cut. Cord gases were obtained. The placenta delivered spontaneously and appeared intact on inspection. The second degree medial lateral episiotomy was repaired with 3-0 Vicryl Rapide. There was good hemostasis. Sponge and needle counts were correct x 2. Presentation: Vertex Placental Delivery Description: Spontaneous Placenta Disposition: [facility] Cord Vessel Description: 3 Vessels Nuchal Cord Compression: With compression Cord Gases drawn per routine: ABG, VBG Cord Entanglement: Around neck x 1, loose Drain: Avendano to straight drain Estimated Blood Loss: 300 ml A gender: Male (1 minute): 8 (5 minute): 9 Episiotomy Description: Right Mediolateral, Perineal Extension/lac, 2nd degree Medications given after delivery: IV Pitocin Complications: None 08/02/18 1224 <Electronically signed by Tory Oliveira MD> Date Tory Oliveira MD CC: Tory Oliveira MD Signed CBC-COMPLETE BLOOD CNT Collected: 08/02/2018 Status: F Source: [place] NO DIFF 4:45 AM [facility] REPOSITORY TYPE CODE TESTS RESULT OUT OF RANGE REFERENCE UNITS LAB L100.1000 4.4-11.0 K/mm3 High WBC 12.2 LAB L100.1200 4.2-5.4 M/mm3 Low RBC 4.13 LAB L100.1300 12.0-15.0 g/dl Normal HGB 12.9 LAB L100.1400 37-47 % Normal HCT 38.6 LAB L100.1500 81-99 fL Normal MCV 93.5 LAB L100.1600 27.0-32.0 pg Normal MCH 31.2 LAB L100.1700 32-36 g/gl Normal MCHC 33.4 LAB L100.1810 11.6-14.6 % Normal RDW CV 12.6 LAB L100.1820 35.1-43.9 fl Normal RDW SD 43.1 LAB L100.1900 150-450 K/mm3 Normal PLT 251 LAB L100.2000 6.2-12.0 fl Normal MPV 10.7 Performed By: #### L100.0500 #### [facility] [address] [place], [place], [id number] TYPE AND SCREEN Collected: 08/02/2018 Status: F Source: [place] 4:45 AM [facility] REPOSITORY Order Comment: Reason for Type AND Screen/Red Cells: ROUTINE TYPE CODE TESTS RESULT OUT OF RANGE REFERENCE UNITS LAB B10.0800 A Normal BLOOD TYPE GEL POSITIVE LAB B100.4000 Normal Antibody NEGATIVE Screen Performed By: #### B101.7450 #### [facility] [address] [facility] [place], [place], [id number] CBC-COMPLETE BLOOD CNT Collected: 07/20/2018 Status: F Source: [place] NO DIFF 10:44 AM [facility] REPOSITORY TYPE CODE TESTS RESULT OUT OF [...] MPV 10.4 Performed By: #### L100.0500 #### [facility] [address] [facility] [place], [place], [address] URIC ACID Collected: 07/20/2018 Status: F Source: [place] 10:44 AM [facility] REPOSITORY TYPE CODE TESTS RESULT OUT OF RANGE REFERENCE UNITS LAB L501.1400 2.6-6.0 mg/dL High URIC 6.9 Result Comment: The drugs N-Acetylcysteine and Metamizole may falsely depress this assay. Performed By: #### L501.1400, L501.4100, L501.4405 #### [facility] [address] [facility] [place], [address] AST(SGOT) Collected: 07/20/2018 Status: F Source: [place] 10:44 AM [facility] REPOSITORY TYPE CODE TESTS RESULT OUT OF RANGE REFERENCE UNITS LAB L501.4100 15-37 U/L Normal AST 15 Performed By: #### L501.1400, L501.4100, L501.4405 #### [facility] [address] [facility] [place], [address] ALANINE AMINOTRANSFERAS Collected: 07/20/2018 Status: F Source: [place] (SGPT) 10:44 AM [facility] REPOSITORY TYPE CODE TESTS RESULT OUT OF RANGE REFERENCE UNITS LAB L501.4405 13-56 U/L Normal ALT 15 Performed By: #### L501.1400, L501.4100, L501.4405 #### [facility] [address] [facility] [place], [address] Observed: 07/20/2018 Status: F Source: [place] CULTURE, GROUP B 9:45 AM [facility] STREPTOCOCCUS REPOSITORY Comments: VAGINAL/RECTAL STEPHANY Culture ORGANISM 1: Streptococcus agalactiae (B) Amount Growth Growth Streptococcus agalactiae (B): REACTION Ampicillin $ <=0.25 S Clindamycin $$ <=0.25 R Inducable Clindamycin Resistan + Linezolid $$$$ <=2 S Vancomycin $ 0.5 S (NF) indicates non-formulary drug at [facility]. Approval by Infectious Disease Specialist required before non-formulary drugs may be ordered and/or dispensed. * CLSI guidelines does not recommend testing of cephalosporins. This interpretation is deduced from Beta-lactam/penicillin results. Performed By: #### M100.1800 #### [facility] [address] [place], [place] [address]d[address]. [place], [place], [address] EMERGENCY DEPARTMENT Observed: 07/10/2018 Status: F Source: [place] SUMMARY 4:37 PM [facility] REPOSITORY [facility] Medical Records Department [address] [place] [address] [place] [address] Emergency Department Summary 07/10/18 1225 MR#: [id number] Acct: [id number] Name: JAYHSREE MORALES Rep #: [id number] : 1985 32 From: Khalif Pinon MD [...] a droop yet. They were in the [place] area [address] [facility] who did a negative CT and [...] intact. She has 5 out of 5 plant physiologist strength bilaterally. Dorsi plantar flexion intact. She [...] for 1 week. And follow-up with her CONTRIBUTION SOLICITOR. Treatment Plan: Prednisone 40 m a day for 7 days. Also tape her eye closed at night. Use eyedrops. 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 It may contain incorrect words, [...] problems, contact your Primary Care Provider. Call [employer] ([phone]) or report to the closest Emergency Room. Call 911 if necessary. 07/10/18 2267 <Electronically signed by Khalif Pinon MD> Date Khalif Pinon MD Cosigner Signature (If Indicated): Date CC: Diego Betancourt MD DISCHARGE INSTRUCTION Observed: 07/10/2018 Status: F Source: [place] 4:37 PM [facility] REPOSITORY [facility] Medical Records Department [address] [place] [address] Discharge Instruction 07/10/18 1230 MR#: [id number] Acct: [id number] Name: JAYSHREE MORALES Rep #: [id number] : 1985 32 From: Khalif Pinon MD PCP: Diego Betancourt MD Status: [facility] ER ED Disposition - Plan for ED Patient: Disposition: Home or Assisted Living Chief Complaint: Numb/Ting Instructions: ED [place] Palsy Prescriptions: Prednisone [Deltasone] 40 mg PO DAILY 7 Days #7 tab Referrals: Baldev Swain MD [STAFF PHYSICIAN] - As soon as possible Additional Instructions: Prednisone daily. Follow-up with your CONTRIBUTION SOLICITOR. What to do if you have Problems For any increased pain, shortness of breath, bleeding, nausea or vomiting, chest pain, or any unexpected problems, contact your Primary Care Provider. Call [employer] ([phone]) or report to the closest Emergency Room. Call 911 if necessary. 07/10/18 4197 <Electronically signed by Khalif Pinon MD> Date Khalif Pinon MD Cosigner Signature (If Indicated): Date CC: Diego Betancourt MD CT HEAD WITHOUT Observed: 07/09/2018 Status: F Source: [facility] CONTRAST 5:16 PM [facility] REPOSITORY EXAM: CT HEAD WITHOUT CONTRAST, 07/09/2018 [...] unremarkable. IMPRESSION: No acute intracranial findings. WITH AHSAN DUENAS Collected: 07/09/2018 Status: F Source: [facility] 3:33 PM [facility] REPOSITORY TYPE CODE TESTS RESULT OUT OF [...] Lymph 1.70 LAB AMONO 0.22-0.87 K/uL Abs Bourbon 0.63 LAB AEOS 0.00-0.42 K/uL Abs Eos 0.06 LAB ABASO 0.00-0.15 K/uL Abs Baso 0.04 Performed By: #### CBCDFJ #### [place] [facility], [facility] [address] [place], [place] [address] BASIC METABOLIC Collected: 07/09/2018 Status: F Source: [facility] 3:33 PM [facility] REPOSITORY TYPE CODE TESTS RESULT OUT OF [...] GFR >60 mL/min/1.73 sqM Est GFR,non >60 [place] LAB GFRA >60 mL/min/1.73 sqM Est GFR, >60 Performed By: #### JURGEN #### [place] [address] [place] [address] HEPATIC FUNCTIONS - Collected: 07/09/2018 Status: F Source: [facility] 3:33 PM [facility] REPOSITORY TYPE CODE TESTS RESULT OUT OF REFERENCE UNITS RANGE LAB AST 14-40 U/L AST 17 LAB ALT 9-48 U/L ALT 11 LAB ALP 32-126 U/L Alkaline Phosphatase 92 LAB ALB 3.5-5.0 g/dL Albumin 3.5 LAB BILD <0.3 mg/dL Bilirubin Direct 0.1 LAB BILT <1.5 mg/dL Bilirubin Total 0.3 LAB TP 6.4-8.3 g/dL Low Total Protein 6.2 Performed By: #### JURGEN #### [place] [facility] [address] [place] [address] INORG PHOSPHATE - [facility] Collected: 07/09/2018 Status: F Source: [facility] 3:33 PM [facility] REPOSITORY TYPE CODE TESTS RESULT OUT OF REFERENCE UNITS RANGE LAB IP 2.2-4.6 mg/dL Inorg Phosphate 4.6 Performed By: #### JURGEN #### [place] [facility] [address] [place] [address] MAGNESIUM - CHRI Collected: 07/09/2018 Status: F Source: [facility] 3:33 PM [facility] REPOSITORY TYPE CODE TESTS RESULT OUT OF REFERENCE UNITS RANGE LAB MG 1.6-2.6 mg/dL Magnesium 2.0 Performed By: #### [facility] #### [place] [facility] [address] [place] [address] *URINALYSIS (WITH MICRO Collected: 07/09/2018 Status: F Source: [facility]) - ED 3:18 PM [facility] REPOSITORY TYPE CODE TESTS RESULT OUT OF RANGE REFERENCE UNITS LAB PROGRAM ADVISOR Clear Appearance Urine Clear LAB SPGR 1.001-1.035 Specific [place] urine 1.010 LAB UPH 5.0-7.0 pH Urine [...] Epithelial 1+ Performed By: #### URINCC #### [facility] [address] [place] [address] [address] [place] [address] CBC-COMPLETE BLOOD CNT Collected: 06/01/2018 Status: F Source: [place] NO DIFF 11:38 AM [facility] REPOSITORY TYPE CODE TESTS RESULT OUT OF [...] MPV 9.9 Performed By: #### L100.0500 #### [facility] [address] [place], [address] GLUCOSE CHALLENGE GEST Collected: 06/01/2018 Status: F Source: [place] 1H 50G 11:38 AM [facility] REPOSITORY TYPE CODE TESTS RESULT OUT OF RANGE REFERENCE UNITS LAB L501.0250 70-140 mg/dL Normal GLU GEST 99 50g 1H Performed By: #### L501.0250 #### [facility] [address] [place], [address] THYROID STIM HORMONE Collected: 12/29/2017 Status: F Source: [place] (TSH) 3:48 PM [facility] REPOSITORY TYPE CODE TESTS RESULT OUT OF RANGE REFERENCE UNITS LAB L501.9520 0.358-3.74 uIU/mL Normal TSH 0.81 Performed By: #### L501.9520 #### [facility] [address] [facility] [place], [address] URINALYSIS, ROUTINE Collected: 12/29/2017 Status: F Source: [place] (DIPSTICK) 3:48 PM [facility] REPOSITORY Order Comment: How was Urine Obtained? [...] 25 ESTERASE Performed By: #### L400.2010 #### [facility] [address] [place], [address] CBC W/DIFF, AUTOMATED Collected: 12/29/2017 Status: F Source: [place] 3:48 PM [facility] REPOSITORY TYPE CODE TESTS RESULT OUT OF [...] Lymph 1.58 Performed By: #### L100.0100 #### [facility] [address] [place], [address] T AND S-NO Collected: 12/29/2017 Status: F Source: [place] CHARGE W/PNP 3:48 PM [facility] REPOSITORY Order Comment: Reason for Type AND Screen/Red Cells: Surgery? N TYPE CODE TESTS RESULT OUT OF RANGE REFERENCE UNITS LAB B10.0800 A Normal BLOOD POSITIVE TYPE GEL LAB B100.4050 Normal Ab SCREEN NEGATIVE GEL Performed By: #### B100.7550 #### [facility] [address] [facility] [place], [place], [id number] RUBELLA IGG Collected: 12/29/2017 Status: F Source: [place] 3:48 PM [facility] REPOSITORY TYPE CODE TESTS RESULT OUT OF RANGE REFERENCE UNITS LAB L509.4000 IU/mL Normal Rubella IgG 202.6 Result Comment: Antibody results Interpretation of Immune Status < 5 IU/ml Presumed Non-immune 5 - < 10 IU/ml Equivocal > or = 10 IU/ml Presumed Immune Performed By: #### L509.4000, L3890.6005 #### [facility] [place], [place], [address] HIV - [facility] Collected: 12/29/2017 Status: F Source: [place] 3:48 PM [facility] REPOSITORY TYPE CODE TESTS RESULT OUT OF RANGE REFERENCE UNITS LAB L3890.6005 Nonreactive Normal HIV - [facility] Non-Reactive Performed By: #### L509.4000, L3890.6005 #### [facility] [place], [place], [id number] RPR Collected: 12/29/2017 Status: F Source: [place] 3:48 PM [facility] REPOSITORY TYPE CODE TESTS RESULT OUT OF REFERENCE UNITS RANGE LAB L700.5100 NONREACTIVE Normal RPR NONREACTIVE Performed By: #### L700.5100 #### [facility] [place], [place], [address] HEPATITIS B SURFACE Collected: 12/29/2017 Status: F Source: [place] AG 3:48 PM [facility] REPOSITORY TYPE CODE TESTS RESULT OUT OF RANGE REFERENCE UNITS LAB L3100.0400 Negative Normal HB Negative SURF AG Result Comment: Performed at: - [facility] [address] [id number] Product Delivery Specialist: Anup Blunt PhD, Phone: [phone] Performed By: #### L3100.0390, L3100.0625 #### [facility] (refer to report for specific site) refer to report for address and phone number HEPATITIS C ANTIBODIES Collected: 12/29/2017 Status: F Source: [place] 3:48 PM [facility] REPOSITORY TYPE CODE TESTS RESULT OUT OF RANGE REFERENCE UNITS LAB L3100.0650 0.0-0.9 s/co ratio Normal HEP C AB <0.1 Result Comment: Negative: < 0.8 Indeterminate: 0.8 - 0.9 Positive: > 0.9 The CDC recommends that a positive HCV antibody result be followed up with a HCV Nucleic Acid Amplification test (628198). Performed By: #### L3100.0390, L3100.0625 #### [facility] (refer to report for specific site) refer to report for address and phone number CERVICAL Observed: 12/29/2017 Status: F Source: [place] 3:40 PM [facility] REPOSITORY Patient: JAYSHREE MORALES : 1985 (32/F) Acct Num: [id number] Phys: Wiliam PEREZ,Baldev Unit Num: [id number] Loc: [facility] Specimen: [id number] Received: 12/29/17 - 1629 Spec Type: CERV TISSUES TISSUES: Uterine cervix, NOS GROSS DESCRIPTION Received in fixative is one container labeled with the patient's name and designated biopsy. The specimen consists of multiple irregular fragments of kohli soft tissue mixed with mucoid tissue that in aggregate measure 1 x 1 x 0.1 cm. The specimen is totally submitted in one cassette. / INEZ:ken 12/30/17 TC:5 CPT: 54786 HEADER OPERATION: Excision cervical lesion PRE-OP DIAGNOSIS: Lesion on cervix (7 weeks ) TISSUE SUBMITTED: Cervical biopsy 12 o clock MICROSCOPIC DESCRIPTION Slides are reviewed. MICROSCOPIC DIAGNOSIS Cervix, 12 o clock, biopsy: Fragments of squamous mucosa with hyperkeratosis. Fragments of benign endocervical epithelium and mucous. INEZ:ken 12/31/17 Signed Jesús Keith 12/31/17 <signature on file> Performed By: #### PCER #### [place] [facility] [place], [address] CT/NG [facility] BY PCR Collected: 12/29/2017 Status: F Source: [place] 3:00 PM [facility] REPOSITORY Order Comment: CYTOLOGY INFORMATION: - CLINICAL INFORMATION: - DATE LMP/MENOPAUSE: 11/07/17 LMP - COLLECTION VIAL: Thin Prep Vial - STREET CLEANER SOURCE: CERVICAL/ENDOCERVICAL - COLLECTION TECHNIQUE: BRUSH/SPATULA TYPE CODE TESTS RESULT OUT OF RANGE REFERENCE UNITS LAB L8200.2100 Negative Normal Chlam Negative Trac PCR LAB L8200.2200 Negative Normal NG by Negative PCR Performed By: #### L8200.2000 #### [facility] Laboratory [address] [place], [address] PAP I-G W/ REFLEX Collected: 12/29/2017 Status: F Source: [place] TO HR HPV 3:00 PM [facility] REPOSITORY Order Comment: CYTOLOGY INFORMATION: - CLINICAL INFORMATION: - DATE LMP/MENOPAUSE: 11/07/17 LMP - COLLECTION VIAL: Thin Prep Vial - STREET CLEANER SOURCE: CERVICAL/ENDOCERVICAL - COLLECTION TECHNIQUE: BRUSH/SPATULA Specimen Comment: [id number] Specimen Comment: No. of containers..01 ThinPrep Vial [...] Normal PERFORM Comment Result Comment: Sarah Whitaker, Medical Collector (ASCP) LAB L7400.1700 . Normal SIGN Comment [...] high-risk types (16/18/31/33/35/39/45/51/52/56/58/59/68) without differentiation. Performed at: [facility] [employer] [place] [id number] Product Delivery Specialist: Ania Zafar MD, Phone: [phone] Performed at: [address] [id number] Product Delivery Specialist: Flora Kaminski MD, Phone: [phone] Performed at: [facility] [address] [id number] Product Delivery Specialist: Flora Kaminski MD, Phone: [phone] Performed By: #### L7400.0355 #### [facility] (refer to report for specific site) refer to report for address and phone number ALLERGIES ALLERGIES DATE TYPE / CODE NAME / CODE REACTION SEVERITY SOURCE 07/10/2018 Drug No Known Unknown [facility] Allergy/4160 Allergies/F00 Hospital 32057(SNOMED 1925181(RXNOR Repository CT) M) ENCOUNTERS ENCOUNTERS ADMIT/DISCHARGE ACCOUNT NUMBER ADMITTING ENCOUNTER LOCATION SOURCE CLASS 08/02/2018/08/04/20 [id number] [facility] Inpatient [facility] summer Encounter [facility] ding:WPRoom: Repository NX750Ahs: 1 07/20/2018 [id number] Ambulatory [facility] ding:[facility] Repository 07/10/2018/07/10/20 [id number] Emergency [address] ding:ED Repository 07/09/2018/07/09/20 [id number] Emergency Building:[place] [address] Room: [place] [id number]: [address] Repository 06/01/2018 [id number] [facility] [place] [facility] Repository 12/29/2017 [id number] Amb[place] [facility] Hospital ding:[facility] Repository PAYERS PAYERS ENCOUNTER GUARANTOR PAYER SUBSCRIBER SOURCE 08/02/2018 ADI [id number] Primary ADI RHODESDOB: [place] Insurance:[employer] [id number] [place] [facility] Number: Hospital [id number]: 330 [id number] Repository [phone] () Date:1613-24-07US [facility] [address] [place] [address]CT: 08/02/2018 Secondary NOT GIVENUNK [place] Insurance:SELF PAY [facility] Number: Effective Repository Date:2018-08-02 07/20/2018 ADI [id number] Primary ADI RHODTANADOB: [place] Insurance:[employer] [id number] [place] icy Number: Hospital [id number]: 330 [id number] Repository [phone] () Date:6044-90-60LX [address] [address]CV: 07/20/2018 Secondary NOT GIVENUNK [place] Insurance:SELF PAY Community [facility] Number: Effective Repository Date:2018-07-20 07/10/2018 ADI [id number] Primary ADI RHODTANADOB: [place] Insurance[id number] Hospital [id number]: 330 [id number] Repository [phone] () Date:[id number] [facility] [address] [place] [address]ID: 07/10/2018 Secondary NOT GIVENUNK [place] Insurance:SELF PAY Community [facility] Number: Effective Repository Date:2018-07-10 07/09/2018 ELIJAH Primary ADI RHODTANADOB: [facility]: Insurance:[employer] [id number] University icy Number: [facility]UE [facility]ANKEN[facility]TA [facility] [place]UE [place] [id number], [place] Date:1160-01-73Sibz [address]Qoo: (330) Repository [address]Kfe: (330) Name:MANAGED CARE [phone] () [phone] () 06/01/[address] [facility] [place] Insurance:[id number] Number: [facility] [id number]: (330) [id number] Repository [phone] () Date:9324-23-39TX [address] [address]QD: 06/01/2018 Secondary NOT GIVENUNK [place] Insurance:SELF PAY [facility] Number: Effective Repository Date:2018-06-01 12/29/[address] Primary [facility] [place] Insurance:[employer] [id number] [place] icy Number: Hospital [id number]: (330 [id number] Repository [phone] () Date:4291-73-55CL [address] [address]TF: 12/29/2017 Secondary NOT GIVENUNK [place] Insurance:SELF PAY [facility] Number: Effective Repository Date:2017-12-29
== END ==
PROVIDERS: Visit Provider Obstetrics & Gynecology
DX: Z36.85 Encounter for antenatal screening for Streptococcus B (principal); O13.9 Gestational [pregnancy-induced] hypertension without significant proteinuria, unspecified trimester; R03.0 Elevated blood-pressure reading, without diagnosis of hypertension
CPT/HCPCS: 36415; 84450; 84460; 84550; 85027; 87077; 87081; 87186

== ENCOUNTER 2018-08-02 04:30 | Inpatient (IN) | payer OTHER, SELFPAY ==
[2018-08-02] MEDS: Lactated Ringers 1,000 ML 50 ML IV (04:45)
[2018-08-02 05:09] VITALS: BMI 39.9
[2018-08-02 05:40] LABS: Hematocrit 38.6 % (37-47); Hemoglobin 12.9 g/dl (12.0-15.0); Mean Corp Hgb Conc 33.4 g/gl (32-36); Mean Corpuscular Hgb 31.2 pg (27.0-32.0); Mean Corpuscular Volume 93.5 fL (81-99); Mean Platelet Vol. 10.7 fl (6.2-12.0); Platelet Count 251 K/mm3 (150-450); RBC Distribution Width CV 12.6 % (11.6-14.6); RBC Distribution Width SD 43.1 fl (35.1-43.9); Red Blood Count 4.13 M/mm3 (4.2-5.4); Scan Indicated on CBC? Y/N NO; White Blood Count 12.2 K/mm3 (4.4-11.0)
--- NOTE | 2018-08-02 10:00 | PCM.PN.BLA ---
Progress Note Patient reports doing well overall, contractions persists. GEN - NAD, AAO x 3 FHR 130, moderate variability, + accelerations, occasional variable deceleration TOCO 2-4/10 min SVE 8.5/80/-2, cephalic A/P: 32yo @ 38 2/7wga in active labor, Cat II FHR -Maternal and statuses overall reassuring -Fundal pressure applied and amniotomy performed with clear fluid -I observed patient at bedside for approximately 20 minutes after rupture of membranes and with her declaration that pressure persists even without contractions repeat exam was performed. SVE cervix regressed to 6/80/-1. FHR remained Cat I-II. -Will continue to observe in labor.
--- NOTE | 2018-08-02 10:03 | PCM.PN.OB ---
Subjective: Patient reports doing well overall, contractions persists. GEN - NAD, AAO x 3 FHR 130, moderate variability, + accelerations, occasional variable deceleration TOCO 2-4/10 min SVE 8.5/80/-2, cephalic A/P: 32yo @ 38 2/7wga in active labor, Cat II FHR -Maternal and statuses overall reassuring -Fundal pressure applied and amniotomy performed with clear fluid -I observed patient at bedside for approximately 20 minutes after rupture of membranes and with her declaration that pressure persists even without contractions repeat exam was performed. SVE cervix regressed to 6/80/-1. FHR remained Cat I-II. -Will continue to observe in labor. - Physical Exam Weight: 83.8 kg Body Mass Index (BMI) 39.9 Laboratory Tests Past 24 Hrs 08/02/18 08/02/18 04:45 04:45 WBC 12.2 H RBC 4.13 L Hgb 12.9 Hct 38.6 MCV 93.5 MCH 31.2 MCHC 33.4 RDW 12.6 RDW Differential 43.1 Plt Count 251 MPV 10.7 Blood Type A POSITIVE Antibody Screen NEGATIVE Medical Necessity - Tobacco Use Smoking Status: Former smoker
[2018-08-02] MEDS: Oxytocin 30 units/NS 500 ml 30 UNITS/500 ML IV.SOLN 334 UNITS IV (11:45)
--- NOTE | 2018-08-02 12:06 | PCM.OB.VAG ---
- Problem List (1) 38 weeks gestation of Status: Acute (2) (spontaneous vaginal delivery) Status: Acute Vaginal Delivery Maternal Presentation: Active Labor Method of Induction: - - pitocin augmentation Amniotic Membrane Rupture Type: Artificial Rupture of Membrane time: 0939h 08/02/18 Amniotic Fluid Description: Clear Final ATA: 08/14/18 Final ATA Source: US <20 weeks Gestational age: 38 Weeks and 2 Days [place] doctor who attended delivery (if requested by OB): Alexsandra Mai Date of Procedure: 08/02/18 Pre-Operative Diagnosis: 38 2/7wga, labor Post-Operative Diagnosis: 38 2/7wga, labor Surgery/ Procedure Performed: Spontaneous Vaginal Delivery Type of Anesthesia: None, Local with 1% lidocaine Description of Procedure: IV pitocin was discontinued for recurrent variable decelerations with some improvement of FHR. On my exam, patient was FD/+2 station. She pushed with maternal effort to +4 station. FHR remained Cat I-II with moderate variability with intermittent loss of contact during pushing. There was perineal tissue dystocia. I advised episiotomy and patient agreed to proceed. 1% lidocaine was injected at the perineum and a right mediolateral episiotomy was performed. The patient delivered the head with the subsequent contraction. A nuchal cord was reduced x 1 and the shoulders delivered easily to reveal a vigorous male infant. The was placed on the maternal abdomen and further attended by nursery personnel and the Pediatric Hospitalist. The cord was doubly clamped and cut. Cord gases were obtained. The placenta delivered spontaneously and appeared intact on inspection. The second degree medial lateral episiotomy was repaired with 3-0 Vicryl Rapide. There was good hemostasis. Sponge and needle counts were correct x 2. Presentation: Vertex Placental Delivery Description: Spontaneous Placenta Disposition: [facility] Cord Vessel Description: 3 Vessels Nuchal Cord Compression: With compression Cord Gases drawn per routine: ABG, VBG Cord Entanglement: Around neck x 1, loose Drain: Avendano to straight drain Estimated Blood Loss: 300 ml A gender: Male (1 minute): 8 (5 minute): 9 Episiotomy Description: Right Mediolateral, Perineal Extension/lac, 2nd degree Medications given after delivery: IV Pitocin Complications: None
--- NOTE | 2018-08-02 12:10 | OP.PCM_ITS ---
- Problem List (1) 38 weeks gestation of Status: Acute (2) (spontaneous vaginal delivery) Status: Acute Vaginal Delivery Maternal Presentation: Active Labor Method of Induction: - - pitocin augmentation Amniotic Membrane Rupture Type: Artificial Rupture of Membrane time: 0939h 08/02/18 Amniotic Fluid Description: Clear Final ATA: 08/14/18 Final ATA Source: US <20 weeks Gestational age: 38 Weeks and 2 Days [place] doctor who attended delivery (if requested by OB): Alexsandra Mai Date of Procedure: 08/02/18 Pre-Operative Diagnosis: 38 2/7wga, labor Post-Operative Diagnosis: 38 2/7wga, labor Surgery/ Procedure Performed: Spontaneous Vaginal Delivery Type of Anesthesia: None, Local with 1% lidocaine Description of Procedure: IV pitocin was discontinued for recurrent variable decelerations with some improvement of FHR. On my exam, patient was FD/+2 station. She pushed with mat ernal effort to +4 station. FHR remained Cat I-II with moderate variability with intermittent loss of contact during pushing. There was perineal tissue dystocia. I advised episiotomy and patient agreed to proceed. 1% lidocaine was injected at the perineum and a right mediolateral episiotomy was performed. The patient delivered the head with the subsequent contraction. A nuchal cord was reduced x 1 and the shoulders delivered easily to reveal a vigorous male infant. The infant was placed on the maternal abdomen and further attended by nursery personnel and the Pediatric Hospitalist. The cord was doubly clamped and cut. Cord gases were obtained. The placenta delivered spontaneously and appeared intact on inspection. The second degree medial lateral episiotomy was repaired with 3-0 Vicryl Rapide. There was good hemostasis. Sponge and needle counts were correct x 2. Presentation: Vertex Placental Delivery Description: Spontaneous Placenta Disposition: [facility] Cord Vessel Description: 3 Vessels Nuchal Cord Compression: With compression Cord Gases drawn per routine: ABG, VBG Cord Entanglement: Around neck x 1, loose Drain: Avendano to straight drain Estimated Blood Loss: 300 ml A gender: Male (1 minute): 8 (5 minute): 9 Episiotomy Description: Right Mediolateral, Perineal Extension/lac, 2nd degree Medications given after delivery: IV Pitocin Complications: None
[2018-08-02] MEDS: Oxytocin 30 units/NS 500 ml 30 UNITS/500 ML IV.SOLN 167 UNITS IV (12:15)
--- NOTE | 2018-08-02 12:31 | DCINST_ITS ---
Discharge Diet: No Restrictions Discharge Activity: Return to Normal Activity, May not drive while taking narcotic pain medications., May Take a Tub Bath May resume sexual activity in: 6 weeks Lifting Restrictions: 20 lb Call your doctor if you observe: Fever of 101 or Higher, Inability to urinate, Inability to have a bowel movement, Using more than one pad per hour, Shortness of breath, Chest pain, Calf discomfort, Uncontrolled pain Suture Line Care: Avoid Pulling/Pushing Cleanse incision/area with: Soap & Water Additional Instructions: If you experience any of the following, contact your healthcare provider. * Bleeding that soaks a pad every hour for 2 hours * Fever 100.4 or higher * Unrelieved incision or abdominal pain * Swelling, redness, discharge or bleeding from your incision or episiotomy site * Your incision begins to separate * Problems urinating (including inability to urinate or burning while urinating). * Visual changes * Severe headache * Flu-like symptoms * Pain or redness in one of both of your breasts * Pain, warmth, tenderness or swelling in your legs, especially the calf area * Frequent nausea and vomiting * Symptoms of depression or anxiety If you experience any of the following, call 911 or go to the nearest Emergency Room. * Chest pain * Problems breathing * Seizure activity * Partial or complete paralysis of a body part, slurred speech, weakness or drooping of the face, or a sudden inability to walk or hold your balance Allergies/Adverse Reactions: Allergies No Known Allergies Allergy (Verified 07/10/18 11:53) Medications to take at Discharge L.acidoph,Paracasei, B.lactis [Probiotic] 1 each PO DAILY 10/22/15 Vits [Prenatabs FA] 1 tablet PO DAILY 10/22/15 Ibuprofen 600 mg PO TID PRN #30 tablet 08/02/18 The following prescriptions were given: Ibuprofen 600 mg PO TID PRN #30 tablet PRN Reason: Pain Please Follow Up With: Baldev Swain MD - Blood pressure check When: 7-10 days Please Follow Up With: Baldev Swain MD - visit When: 6 weeks Test Results: Test results from this visit will be discussed in further detail at your follow- up appointment, if applicable.
[2018-08-02] MEDS: Ibuprofen 600 MG Tablet PO ×2 (13:29→19:36)
[2018-08-02] MEDS: Acetaminophen 325 MG Tablet PO (15:06)
[2018-08-02 15:47] VITALS: BP 129/89; PULSE 95; RESP 18; TEMP 37.1
--- NOTE | 2018-08-02 17:44 | NURSING ---
voided qs but did not measure. Pt states feels bladder emptied.
[2018-08-02 19:28] VITALS: BP 139/80; PULSE 105; RESP 16; TEMP 36.1
[2018-08-02 23:52] VITALS: BP 144/79; PULSE 111; RESP 16; TEMP 36.4
--- NOTE | 2018-08-02 23:54 | NURSING ---
baby crying and pt trying to nurse baby during this reading
[2018-08-03 05:00] VITALS: BP 146/84; PULSE 100; RESP 16; TEMP 36.8
[2018-08-03 07:54] VITALS: BP 138/88; PULSE 102; RESP 18; TEMP 36.5
--- NOTE | 2018-08-03 12:32 | PCM.PN.OB ---
Patient Problems: Active and Suspected Problems 38 weeks gestation of (Acute) (spontaneous vaginal delivery) (Acute) Subjective: Denies headache, vision changes, heavy lochia or abdominal pain. She has been out of bed. Had some sensation of urinary retention yesterday afternoon, but that has now resolved. She is nursing and is latching well. Objective: AVSS - Physical Exam General: Alert, Oriented x3, Cooperative, No apparent distress Lungs: Normal air movement Cardiovascular: Regular rate, Regular Rhythm, Normal S1, Normal S2 Abdomen: Soft, Non Tender, Non-Distended Extremities: No Calf Tenderness, - - trace left LE edema Neurological: Neuro grossly intact Psych/Mental Status: Normal Affect, Appropriate, Alert and oriented to time, place, person, mood and affect Vital Signs Temp Pulse Resp BP 97.7 F L 102 H 18 138/88 H 08/03/18 07:54 08/03/18 07:54 08/03/18 07:54 08/03/18 07:54 Oxygen Delivery Method Room Air Weight: 83.8 kg Body Mass Index (BMI) 39.9 Intake and Output for Last 24 Hours 08/01/18 08/02/18 08/03/18 23:59 23:59 23:59 Intake Total 2250 / 2250 Output Total 1850 / 1850 Balance 400 / 400 Medical Necessity - Tobacco Use Smoking Status: Former smoker Assessment/Plan All Active Problems 38 weeks gestation of (Acute) (spontaneous vaginal delivery) (Acute) 32yo PPD #1 s/p doing well -BPs remain elevated - likely gHTN, no sx preeclampsia. Will order preeclamptic labs in am to follow up -Routine care - -A positive, Rubella immune.
[2018-08-03 14:00] VITALS: BP 134/82; PULSE 94; RESP 18; TEMP 36.8
[2018-08-03] MEDS: Prenatal Vits Tablet 1 TABLET PO (17:29)
[2018-08-03 19:53] VITALS: BP 142/90; PULSE 89; RESP 17; TEMP 36.8; O2SAT 97
[2018-08-03 23:20] VITALS: BP 138/79
[2018-08-04 02:25] VITALS: BP 126/69; PULSE 91; RESP 14; TEMP 36.8; O2SAT 96
[2018-08-04 04:59] LABS: Absolute Lymphocyte Count 1.97 X10^3/ul (0.83-4.51); Absolute Neutrophil Count 4.9 X10^3/uL (2.0-7.7); Basophil# 0.02 X10^3/uL; Basophil% 0.3 % (0-1); Eosinophil# 0.18 X10^3/uL; Eosinophils% 2.4 % (0-5); Hematocrit 33.8 % (37-47); Hemoglobin 11.3 g/dl (12.0-15.0); Lymphocyte # 1.97 X10^3/ul (4.0); Lymphocyte % 26.2 % (19-41); Mean Corp Hgb Conc 33.4 g/gl (32-36); Mean Corpuscular Hgb 32.1 pg (27.0-32.0); Monocyte# 0.48 X10^3/uL; Monocyte% 6.4 % (0-10); Neutrophil # 4.85 X10^3/uL (2.7-7.7); Neutrophil % 64.4 % (47-70); Platelet Count 279 K/mm3 (150-450); RBC Distribution Width CV 12.5 % (11.6-14.6); RBC Distribution Width SD 42.2 fl (35.1-43.9); Red Blood Count 3.52 M/mm3 (4.2-5.4); White Blood Count 7.5 K/mm3 (4.4-11.0)
[2018-08-04 05:00] LABS: POSITIVE COUNT NO; POSITIVE DIFFERENTIAL NO; POSITIVE MORPHOLOGY NO
[2018-08-04 05:16] LABS: ALB/GLOB Ratio 0.7 RATIO (0.9-2.4); AST(SGOT) 21 U/L (15-37); Alanine Aminotransfer ALT/SGPT 18 U/L (13-56); Albumin, Serum 2.4 g/dL (3.2-5.0); Alkaline Phosphatase 83 U/L (45-117); Anion Gap 9 (5-15); BUN 12 mg/dL (7-18); BUN/Creat Ratio 14.2 RATIO (10-20); Calcium,Total 8.4 mg/dL (8.5-10.1); Chloride 108 mmol/L (98-107); Creatinine, Serum 0.84 mg/dL (0.55-1.02); EST Glomerular Filtration Rate 82 mL/min (>60); Est Glom Filt Rate - Afr Amer 99 mL/min (>60); Estimated Creatinine Clearance 126.02 ml/min; Globulin 3.4 g/dL (2.2-4.2); Glucose 73 mg/dL (74-106); Potassium 3.9 mmol/L (3.5-5.1); Protein, Total 5.8 g/dL (6.4-8.2); Sodium Level 142 mmol/L (136-145); Uric Acid 7.4 mg/dL (2.6-6.0)
[2018-08-04 08:58] VITALS: BP 132/86; PULSE 92; RESP 18; TEMP 36.8
--- NOTE | 2018-08-04 09:48 | PN.OBGYN_ITS ---
Patient Problems: Active and Suspected Problems 38 weeks gestation of (Acute) (spontaneous vaginal delivery) (Acute) Subjective: Patient without complaints. Minimal vaginal bleeding. Ready to go home today. - Physical Exam Vital Signs Temp Pulse Resp BP Pulse Ox 98.3 F 92 18 132/86 H 96 08/04/18 08:58 08/04/18 08:58 08/04/18 08:58 08/04/18 08:58 08/04/18 02:25 Oxygen Delivery Method Room Air Weight: 184 lb 11.958 oz Body Mass Index (BMI) 39.9 Intake and Output for Last 24 Hours 08/02/18 08/03/18 08/04/18 23:59 23:59 23:59 Intake Total 2250 / 2250 Output Total 1850 / 1850 Balance 400 / 400 Laboratory Tests Past 24 Hrs 08/04/18 08/04/18 04:50 04:50 WBC 7.5 RBC 3.52 L Hgb 11.3 L Hct 33.8 L MCV 96.0 MCH 32.1 H MCHC 33.4 RDW 12.5 RDW Differential 42.2 Plt Count 279 MPV 10.0 Immature Gran % (Auto) 0.300 Neut % (Auto) 64.4 Lymph % (Auto) 26.2 [place] % (Auto) 6.4 Eos % (Auto) 2.4 Baso % (Auto) 0.3 Absolute Neuts (auto) 4.9 Absolute Lymphs (auto) 1.97 Total Counted Not Reportable Sodium 142 Potassium 3.9 Chloride 108 H Carbon Dioxide 25.0 Anion Gap 9 BUN 12 Creatinine 0.84 Estim Creat Clear Calc 126.02 Est GFR (MDRD) Af Amer 99 Est GFR (MDRD) Non-Af 82 BUN/Creatinine Ratio 14.2 Glucose 73 L Uric Acid 7.4 H Calcium 8.4 L Total Bilirubin 0.20 AST 21 ALT 18 Alkaline Phosphatase 83 Total Protein 5.8 L Albumin 2.4 L Globulin 3.4 Albumin/Globulin Ratio 0.7 L Medical Necessity - Tobacco Use Smoking Status: Former smoker Assessment/Plan All Active Problems 38 weeks gestation of (Acute) (spontaneous vaginal delivery) (Acute) Doing well day #2. Will release to home with routine instructions.
[2018-08-04 10:50] VITALS: BP 132/86; PULSE 92; RESP 18; TEMP 36.8
== END 2018-08-04 10:50 | disposition home or self-care (01) | DRG 806 ==
PROVIDERS: Admitting Provider Obstetrics & Gynecology; Visit Provider Obstetrics & Gynecology
DX: O76 Abnormality in fetal heart rate and rhythm complicating labor and delivery (principal); O98.82 Other maternal infectious and parasitic diseases complicating childbirth; Z37.0 Single live birth; B95.1 Streptococcus, group B, as the cause of diseases classified elsewhere; O69.1XX0 Labor and delivery complicated by cord around neck, with compression, not applicable or unspecified; O70.1 Second degree perineal laceration during delivery; Z3A.38 38 weeks gestation of pregnancy; Z87.440 Personal history of urinary (tract) infections; Z87.891 Personal history of nicotine dependence; R03.0 Elevated blood-pressure reading, without diagnosis of hypertension; O90.89 Other complications of the puerperium, not elsewhere classified
CPT/HCPCS: 59025; 59050; 80053; 84550; 85025; 85027; 86850; 86900; 99218; J7120; G0378

== ENCOUNTER → 2019-01-04 11:36 | Outpatient (CLI) | payer OTHER, SELFPAY ==
[2019-01-06 12:22] LABS: HPV Reflexed? NOT INDICATED
== END ==
PROVIDERS: Visit Provider Obstetrics & Gynecology
DX: Z12.4 Encounter for screening for malignant neoplasm of cervix (principal)
CPT/HCPCS: 87624; 88175; G0145

== ENCOUNTER → 2021-04-30 | Outpatient (CLI) | payer OTHER, SELFPAY ==
[2021-05-02 16:51] LABS: HPV Reflexed? NOT INDICATED
== END | disposition home or self-care (01) ==
LOC: LABSPEC 12:25
PROVIDERS: Visit Provider Obstetrics & Gynecology
DX: Z12.4 Encounter for screening for malignant neoplasm of cervix (principal)
CPT/HCPCS: 88175; G0145